=== PATIENT | female | born 1960 | race African-American/Black ===

== ENCOUNTER → 2016-09-07 | Outpatient (CLI) | payer OTHER ==
[2016-03-02 15:14] VITALS: BP 115/62; PULSE 59
[~2016-09-07] MED LIST: FMR25 PO; SENN-61 PO; [UNRECOGNIZED DRUG - REMARK]
[2016-09-07 15:09] VITALS: BP 112/69; PULSE 70; TEMP 36.8; O2SAT 97
--- NOTE | 2016-09-07 16:14 | Radiation Oncology Follow-Up ---
Radiation Oncology Follow-Up Date of Visit Sep 07, 2016. 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 Yessica Chris is a 56-year-old -[place] female who self detected a right breast mass in the upper outer quadrant in May of 2015. She has a significant family history of breast cancer. The patient's mother from breast cancer at age 55. A paternal aunt is a survivor of breast cancer and the patient's sister was diagnosed with stage IV breast cancer with brain metastasis. The patient's previous mammogram from 12/21/2012 was unremarkable. On 06/10/2015 patient underwent a repeat bilateral digital diagnostic mammogram with CAD and targeted right ultrasound. Clinically a 3 cm mass was noted in the upper-outer quadrant of the right breast. A new irregular 3.2 x 2.3 cm dense mass was noted in the right upper outer posterior breast with associated architectural distortion. This was suspicious for malignancy. Real- time high-resolution sonographic evaluation of the right upper quadrant and right axilla were performed. At the 10 o'clock position of the right breast, 4 cm from the nipple an irregular and spiculated hypoechoic solid vascular mass was noted measuring 2.9 x 1.5 x 1.7 cm. 2 lymph nodes were identified in the right axilla. The first measured 1.5 cm in length and has a 2.4 mm cortex. The second measured 2.2 cm in length and has a mildly thickened cortex measuring up to 4.1 mm. This lymph node was indeterminate further evaluation and tissue sampling recommended. This was given a BI-RADS Category 5, highly suggestive of malignancy with biopsy recommended. On 06/17/2015 the patient underwent multiple ultrasound-guided biopsies of the right breast and axilla. The tissue taken from the palpable mass of the right breast at the 10 o'clock position under ultrasound guidance revealed an infiltrative carcinoma Miguel grade 2 moderately differentiated. A biopsy of a right axillary lymph node showed changes consistent with interfollicular hyperplasia but no tumor seen. This breast lesion was estrogen receptor positive (100%, strong). Progesterone receptors were negative (0% staining). HER-2/jackson was equivocal (2+). HER-2/jackson status was assessed by FISH analysis and was negative. Case: [id number]. Patient was seen by Dr. Alexandro Parker for surgical evaluation. His examination confirmed a 3 cm firm mass in the upper outer right breast. No palpable axillary adenopathy was appreciated. He discussed surgical treatment options with the patient. He felt that she was a good candidate for breast conserving therapy. He ordered BRCA testing which was performed and was negative. On 07/03/2015 patient underwent a right partial mastectomy and sentinel lymph node biopsy. A right axillary sentinel lymph node #1 revealed metastatic adenocarcinoma identified within 1 of 2 lymph nodes, routine stain and cytokeratin positive). The carcinoma measured up to 0.4 cm in greatest dimension with no extranodal extension identified. The right breast partial mastectomy specimen confirmed infiltrating ductal carcinoma measuring 3.0 x 3.0 x 2.0 cm. This was a histologic [place] grade 2 of 3. Ductal carcinoma in situ was present, solid and cribriform with focal non-comedo necrosis and nuclear grade 2 of 3. No extensive intraductal component was identified. The margins were uninvolved by invasive carcinoma and by DCIS. Invasive carcinoma extended to within 0.2 cm of the deep margin, 0.6 cm from the superior margin and 0.8 cm from the inferior margin. DCIS extended to within less than 0.1 cm of the superior margin. Final AJCC staging is pT2 pN1a(sn), ER positive, IA negative, HER-2/jackson negative. A: [id number]. Patient was seen by Dr. Alexandro Caro for evaluation of systemic therapy. He recommended combined chemotherapy consisting of 4 cycles of Taxotere and Cytoxan followed by 5 years of hormonal therapy. He recommended subsequent radiation to the right breast and chest wall and axillary nodes. We were asked to see the patient in referral for discussion of this treatment option. She completed her systemic chemotherapy. She returned to our office to undergo radiation therapy. She was treated from 01/18/2016 to 01/29/2016. She received 6280 cGy. Interim History She's been doing well over the past 6 months. She has occasional tight feeling in the upper outer portion of the breast and towards the axilla. She has noted no masses or tenderness. She's had no swelling of her arm. She is up-to-date on mammography. She is on Femara and denies side effects. She was uncertain as to the date of her next mammogram. Allergies Coded Allergies: Alcohol (Verified Allergy, Severe, HIVES, DIFFICULTY BREATHING, 11/26/15) Docetaxel (Verified Allergy, Severe, HIVES, DIFFICULTY BREATHING, 11/26/15) Ethanol (Verified Allergy, Severe, HIVES, DIFFICULTY BREATHING, 11/26/15) Sorbitan (Verified Allergy, Severe, HIVES, DIFFICULTY BREATHING, 11/26/15) Metoclopramide (Verified Allergy, Unknown, 10/07/15) Sulfa Drugs (Verified Allergy, Unknown, 10/07/15) Sulfamethoxazole (Verified Allergy, Unknown, 10/07/15) Tomato (Verified Allergy, Unknown, ITCHY, 10/07/15) Trimethoprim (Verified Allergy, Unknown, 10/07/15) Home Medications Scheduled Letrozole (Femara), 1 TAB PO DAILY Senna (Senokot), 1 TAB PO DAILY Review of Systems Gastrointestinal: Symptoms: WNL GI Comments: Constipation - Senna daily Oral: Symptoms: No Problems Respiratory: Symptoms: WNL Urinary: Symptoms: WNL Comments: urine started to get dark since starting cancer pill Skin: Symptoms: No Problems Breast: Right Upper Arm Measurement: 27.5 Right Mid Arm Measurement: 23.0 Right Wrist Measurement: 15.5 Left Upper Arm Measurement: 29.5 Left Mid Arm Measurement: 22.9 Left Wrist Measurement: 15.4 Arm Dominence: Right Physical Exam Vital Signs Date Time Temp Pulse Resp B/P Pulse Ox O2 Delivery O2 Flow Rate FiO2 09/07/16 15:09 36.8 70 16 112/69 97 Pain: Patient Pain Scale: 0 - 10 Initial Pain Intensity: 0.0 Fatigue: None General Appearance: no apparent distress Eyes: normal inspection, EOMI ENT: normal ENT inspection, hearing grossly normal Neck: no adenopathy, thyroid normal Respiratory/Chest: lungs clear, no respiratory distress, no accessory muscle use Breast: Breast examination reveals well-healed healed incisions of the right breast. There are no masses or tenderness no axillary adenopathy. There is mild hyperpigmentation. There are no skin retractions or nipple changes. Using the [place] score cosmesis she has a good outcome. The left breast showed no masses or tenderness and no axillary adenopathy. Cardiovascular: regular rate, rhythm, no gallop, no murmur Extremities: no pedal edema Neurologic/Psychiatric: no motor/sensory deficits, alert, normal mood/affect Skin: warm/dry Lymphatic: no adenopathy Additional Studies BILATERAL DIGITAL DIAGNOSTIC MAMMOGRAM 3D/2D: 04/12/2016 CLINICAL HISTORY: 55-year-old female with a personal history of right breast cancer status post lumpectomy and radiation. Family history of breast cancer = sister. Comparison is made to exams dated: 06/17/2015 ultrasound biopsy, 06/17/2015 mammogram, 06/10/2015 mammogram, and 06/10/2015 ultrasound - [facility]. FINDINGS: Bilateral CC and MLO 2-D digital and tomosynthesis images, spot magnification right CC and ML views were obtained. The tissue of both breasts is heterogeneously dense, which may obscure small masses. Current study was also evaluated with the use of computer aided detection (CAD). Linear scar markers overlie the right upper outer quadrant and axilla, from previous lumpectomy and lymph node sampling. There is expected architectural distortion and associated surgical clips at the lumpectomy bed. Also mild diffuse right breast skin thickening and trabecular edema, likely related to recent treatment. No new suspicious mass, architectural distortion or cluster of microcalcifications is seen bilaterally. IMPRESSION: ACR-BI-RADS CATEGORY 3: PROBABLY BENIGN Expected post-therapeutic changes in the right breast, without definite mammographic evidence of malignancy bilaterally. Would recommend follow-up of the left breast in one year and follow-up of the right breast in 6 months to ensure stability 12 to 18 months status post treatment. These results and recommendations were discussed with the patient at the time of the exam. Approximately 10% of breast cancers are not detected with mammography. A negative mammographic report should not delay biopsy if a clinically suggestive mass is present. Mer Perez M.D. ay/:04/12/2016 09:25:57 [employer] Consultant: Betty Posada, [facility] letter sent: Follow Up Recommended 3 BI-RADS Code: ACR-BI-RADS Category 3: Probably Benign Dictated by: Mer Perez MD Signed by: Mer Perez MD Assessment & Plan Plan: Her schedule was reviewed and she had been scheduled for a recheck right breast mammogram in September. The date and time were given. We discussed light massage to the upper outer portion of the breast and axilla. She also continue doing range of motion stretching exercises. She continues on the Femara. Continue regular follow-up with Dr. Parker and her primary care physician. Continue follow-up with Dr. Caro. We asked her to return to our office in 1 year. She may call if she has any questions or concerns in the interim. Total Time In Follow-Up I spent 20 minutes speaking to the patient and performing examination. I sent 15 minutes reviewing information in completing this note. Copy To Alexandro Parker M.D.; Vicki Ley M.D.; Alexandro Caro M.D.
== END | disposition home or self-care (01) ==
LOC: C.ONC 14:46
PROVIDERS: ATTEND Radiology Radiation Oncology
DX: Z08 Encounter for follow-up examination after completed treatment for malignant neoplasm (principal); Z92.3 Personal history of irradiation; Z85.3 Personal history of malignant neoplasm of breast

== ENCOUNTER → 2016-10-12 | Outpatient (CLI) | payer OTHER ==
[~2016-10-12] MED LIST changes: -[UNRECOGNIZED DRUG - REMARK]
--- NOTE | 2016-10-12 12:32 | MAMMOGRAPHY REPORT ---
UNILATERAL RIGHT DIGITAL DIAGNOSTIC MAMMOGRAM TOMOSYNTHESIS WITH CAD: 10/12/2016 CLINICAL HISTORY: 56-year-old woman with a personal history of right breast cancer status post treat ment presents for follow-up in the right breast. TECHNIQUE: Right breast CC and MLO 2-D digital anterolisthesis images, spot magnification right CC a nd ML views were obtained. Current study was also evaluated with a Computer Aided Detection (CAD) sy stem. COMPARISON: Comparison is made to exams dated: 04/12/2016 mammogram, 06/10/2015 mammogram, 5 ultrasound, and 12/21/2012 mammogram - [facility]. BREAST COMPOSITION: The tissue of the right breast is heterogeneously dense, which may obscure smal l masses. FINDINGS: There is expected architectural distortion with associative surgical clips in the upper o uter posterior right breast, at the site of prior lumpectomy. The remainder of the parenchymal edson taran is similar to prior exams, without evidence of a suspicious mass, architectural distortion or cl uster of suspicious microcalcifications. IMPRESSION: ACR-BI-RADS CATEGORY 3: PROBABLY BENIGN Stable mammographic appearance of the right breast status post treatment, without mammographic evide nce of malignancy. The patient is due for bilateral mammography in 6 months. These results and rec ommendations were discussed with the patient at the time of the exam. She tentatively scheduled a f ollow-up appointment prior to leaving the department. Approximately 10% of breast cancers are not detected with mammography. A negative mammographic repor t should not delay biopsy if a clinically suggestive mass is present. Mer Perez M.D. ay/:10/12/2016 08:27:[address] Manager: Maggi CUMMINGS(R)(M), [facility] letter sent: Personal History 3 BI-RADS Code: ACR-BI-RADS Category 3: Probably Benign
== END | disposition home or self-care (01) ==
LOC: C.MAMM 07:59
PROVIDERS: ATTEND Surgery
DX: Z08 Encounter for follow-up examination after completed treatment for malignant neoplasm (principal); Z85.3 Personal history of malignant neoplasm of breast

== ENCOUNTER → 2017-01-18 | Outpatient (CLI) | payer OTHER ==
[2017-01-18 17:36] LABS: URINE APPEARANCE CLEAR (CLEAR); URINE BILIRUBIN NEG (NEG); URINE COLOR YELLOW; URINE NITRITE NEG (NEG); URINE SPECIFIC GRAVITY 1.011 (1.000-1.030); UROBILINOGEN NEG (NEG)
[2017-01-18 17:41] LABS: MANUAL MICROSCOPIC REQUIRED? NO; REVIEW REQ? NO
== END | disposition home or self-care (01) ==
LOC: C.LAB1850 16:49
PROVIDERS: ATTEND Obstetrics & Gynecology
DX: R39.9 Unspecified symptoms and signs involving the genitourinary system (principal)

== ENCOUNTER → 2017-04-12 | Outpatient (CLI) | payer OTHER | END | disposition home or self-care (01) | LOC: C.PAPS 09:34 | PROVIDERS: ATTEND Obstetrics & Gynecology | DX: Z01.419 Encounter for gynecological examination (general) (routine) without abnormal findings (principal) ==

== ENCOUNTER → 2017-04-12 | Outpatient (CLI) | payer OTHER ==
[2017-04-12 19:41] LABS: URINE APPEARANCE CLEAR (CLEAR); URINE BILIRUBIN NEG (NEG); URINE COLOR YELLOW; URINE NITRITE NEG (NEG); URINE PH 5.5 (4.5-7.5); URINE SPECIFIC GRAVITY 1.014 (1.000-1.030); UROBILINOGEN NEG (NEG); ZZUR CULT IF INDIC CLEAN CATCH NO
[2017-04-12 19:43] LABS: MANUAL MICROSCOPIC REQUIRED? NO; REVIEW REQ? YES
[2017-04-12 20:00] LABS: URINE EPITHELIAL CELL AUTO 0-5 /lpf (0-5)
== END | disposition home or self-care (01) ==
LOC: C.LABSPEC 17:38
PROVIDERS: ATTEND Obstetrics & Gynecology
DX: Z01.419 Encounter for gynecological examination (general) (routine) without abnormal findings (principal)

== ENCOUNTER → 2017-04-14 | Outpatient (CLI) | payer OTHER ==
--- NOTE | 2017-04-14 12:44 | MAMMOGRAPHY REPORT ---
BILATERAL DIGITAL DIAGNOSTIC MAMMOGRAM TOMOSYNTHESIS WITH CAD AND TARGETED RIGHT ULTRASOUND: 7 CLINICAL HISTORY: History of right breast cancer status post lumpectomy and radiation therapy. The p atient reports no current complaints. TECHNIQUE: Breast tomosynthesis in addition to standard 2D mammography was performed. Current study was also evaluated with a Computer Aided Detection (CAD) system. Bilateral CC and MLO 2-D and tomosy nthesis images and spot magnification right cc and ML views were obtained. COMPARISON: Comparison is made to exams dated: 04/12/2016 mammogram, 06/17/2015 ultrasound biopsy, mammogram, 06/10/2015 mammogram, 06/10/2015 ultrasound, and 12/21/2012 mammogram - [facility]. BREAST COMPOSITION: The tissue of both breasts is heterogeneously dense, which may obscure small mas ses. FINDINGS: There are stable post surgical changes in the right upper outer quadrant posteriorly from prior lumpectomy, including stable density, architectural distortion, and surgical clips at the lumpe ctomy bed. Linear scar markers denote scars on the right upper outer breast and right axillary regio n. Spot magnification views of the lumpectomy bed demonstrate no suspicious masses or clusters of mi crocalcifications. Mild diffuse right breast skin thickening is decreased, and is likely related to prior radiation therapy. There is a nodular 12 mm asymmetry seen within the right superior breast on the MLO tomosynthesis images only, which likely represents normal fibroglandular tissue although ult rasound was performed for further evaluation. The remainder of both breasts are stable compared to p rior exams, without suspicious masses, calcifications, or areas of architectural distortion noted. A few scattered bilateral benign-appearing calcifications are again noted. Targeted ultrasound was performed of the right slightly superior breast in the region of the mammogra phic asymmetry, which shows no suspicious masses or other suspicious sonographic abnormalities. Expe cted postsurgical changes are noted at the surgical bed in the right upper outer quadrant at approxim ately 10:00. IMPRESSION: ACR BI-RADS CATEGORY 2: BENIGN, TARGETED ULTRASOUND ACR BI-RADS CATEGORY 2: BENIGN Stable post treatment changes in the right breast, without mammographic evidence of malignancy in eit her breast. There is no mammographic or targeted sonographic evidence of malignancy. A 1 year screen ing mammogram is recommended. The patient has been verbally notified of the results. Approximately 10% of breast cancers are not detected with mammography. A negative mammographic report should not delay biopsy if a clinically suggestive mass is present. Keke Rojas M.D. ah/:04/14/2017 08:31:31 [employer] Operator: Mary QUINONES)(Millie), [facility] letter sent: Normal 1/2 BI-RADS Code: ACR BI-RADS Category 2: Benign Ultrasound BI-RADS: ACR BI-RADS Category 2: Benign
== END | disposition home or self-care (01) ==
LOC: C.MAMM 07:51
PROVIDERS: ATTEND Surgery
DX: C50.911 Malignant neoplasm of unspecified site of right female breast (principal)

== ENCOUNTER → 2017-09-12 | Outpatient (CLI) | payer OTHER ==
[2017-09-12 14:43] VITALS: BP 114/76; PULSE 79; TEMP 36.6; O2SAT 96
--- NOTE | 2017-09-12 16:25 | Radiation Oncology Follow-Up ---
Radiation Oncology Follow-Up Date of Visit Sep 12, 2017. Reason For Visit Annual follow-up Radiation Completion Date 02/08/16 Diagnosis (1) Carcinoma of upper-outer quadrant of right female breast Status: Resolved Onset Date: 06/17/2015 Histology Subtype: Ductal Stage: ll (B) Permanent Comment: Soft detected right breast mass Status post biopsy 06/17/2015 Status post lumpectomy and sentinel lymph node biopsy 07/03/2015 Infiltrating ductal carcinoma Estrogen receptor positive, progesterone receptor negative, HER-2/jackson negative Stage pT2 pN1a(sn) M0 Stage IIB BRCA1 and BRCA2 testing negative Taxotere and Cytoxan for 4 cycles Status post completion of radiation therapy 01/29/2016 received 6280 cGy Last Edited By: Stacy Bruno on Feb 08, 2016 14:19 History of Present Illness Ms. Serena Pino is a 56-year-old -[place] female who self detected a right breast mass in the upper outer quadrant in May of 2015. She has a significant family history of breast cancer. The patient's mother from breast cancer at age 55. A paternal aunt is a survivor of breast cancer and the patient's sister was diagnosed with stage IV breast cancer with brain metastasis. The patient's previous mammogram from 12/21/2012 was unremarkable. On 06/10/2015 patient underwent a repeat bilateral digital diagnostic mammogram with CAD and targeted right ultrasound. Clinically a 3 cm mass was noted in the upper-outer quadrant of the right breast. A new irregular 3.2 x 2.3 cm dense mass was noted in the right upper outer posterior breast with associated architectural distortion. This was suspicious for malignancy. Real- time high-resolution sonographic evaluation of the right upper quadrant and right axilla were performed. At the 10 o'clock position of the right breast, 4 cm from the nipple an irregular and spiculated hypoechoic solid vascular mass was noted measuring 2.9 x 1.5 x 1.7 cm. 2 lymph nodes were identified in the right axilla. The first measured 1.5 cm in length and has a 2.4 mm cortex. The second measured 2.2 cm in length and has a mildly thickened cortex measuring up to 4.1 mm. This lymph node was indeterminate further evaluation and tissue sampling recommended. This was given a BI-RADS Category 5, highly suggestive of malignancy with biopsy recommended. On 06/17/2015 the patient underwent multiple ultrasound-guided biopsies of the right breast and axilla. The tissue taken from the palpable mass of the right breast at the 10 o'clock position under ultrasound guidance revealed an infiltrative carcinoma [place] grade 2 moderately differentiated. A biopsy of a right axillary lymph node showed changes consistent with interfollicular hyperplasia but no tumor seen. This breast lesion was estrogen receptor positive (100%, strong). Progesterone receptors were negative (0% staining). HER-2/jackson was equivocal (2+). HER-2/jackson status was assessed by FISH analysis and was negative. Case: [id number]. Patient was seen by Dr. Alexandro Parker for surgical evaluation. His examination confirmed a 3 cm firm mass in the upper outer right breast. No palpable axillary adenopathy was appreciated. He discussed surgical treatment options with the patient. He felt that she was a good candidate for breast conserving therapy. He ordered BRCA testing which was performed and was negative. On 07/03/2015 patient underwent a right partial mastectomy and sentinel lymph node biopsy. A right axillary sentinel lymph node #1 revealed metastatic adenocarcinoma identified within 1 of 2 lymph nodes, routine stain and cytokeratin positive). The carcinoma measured up to 0.4 cm in greatest dimension with no extranodal extension identified. The right breast partial mastectomy specimen confirmed infiltrating ductal carcinoma measuring 3.0 x 3.0 x 2.0 cm. This was a histologic Miguel grade 2 of 3. Ductal carcinoma in situ was present, solid and cribriform with focal non-comedo necrosis and nuclear grade 2 of 3. No extensive intraductal component was identified. The margins were uninvolved by invasive carcinoma and by DCIS. Invasive carcinoma extended to within 0.2 cm of the deep margin, 0.6 cm from the superior margin and 0.8 cm from the inferior margin. DCIS extended to within less than 0.1 cm of the superior margin. Final AJCC staging is pT2 pN1a(sn), ER positive, [place] negative, HER-2/jackson negative. A: [id number]. Patient was seen by Dr. Alexandro Caro for evaluation of systemic therapy. He recommended combined chemotherapy consisting of 4 cycles of Taxotere and Cytoxan followed by 5 years of hormonal therapy. He recommended subsequent radiation to the right breast and chest wall and axillary nodes. We were asked to see the patient in referral for discussion of this treatment option. She completed her systemic chemotherapy. She returned to our office to undergo radiation therapy. She was treated from 01/18/2016 to 01/29/2016. She received 6280 cGy. Interim History She has been doing well over the past year. She denies any changes to her breast. She has noted no masses or tenderness no change of the axilla. She has had no swelling of her arm. She is up-to-date on mammography. She is on Femara and denies side effects. She has a complaint of itching of her ear canals. She denied any allergy symptoms such as itching of the eyes and sneezing. No problems with nasal drainage. Allergies Coded Allergies: Alcohol (Verified Allergy, Severe, HIVES, DIFFICULTY BREATHING, 11/26/15) Docetaxel (Verified Allergy, Severe, HIVES, DIFFICULTY BREATHING, 11/26/15) Ethanol (Verified Allergy, Severe, HIVES, DIFFICULTY BREATHING, 11/26/15) Sorbitan (Verified Allergy, Severe, HIVES, DIFFICULTY BREATHING, 11/26/15) Metoclopramide (Verified Allergy, Unknown, 10/07/15) Sulfa Drugs (Verified Allergy, Unknown, 10/07/15) Sulfamethoxazole (Verified Allergy, Unknown, 10/07/15) Tomato (Verified Allergy, Unknown, ITCHY, 10/07/15) Trimethoprim (Verified Allergy, Unknown, 10/07/15) Home Medications Scheduled Letrozole (Femara), 1 TAB PO DAILY Review of Systems Gastrointestinal: Symptoms: WNL GI Comments: Constipated at times - managed with prunes Oral: Symptoms: No Problems Respiratory: Symptoms: WNL Urinary: Symptoms: WNL Skin: Symptoms: No Problems Breast: Right Upper Arm Measurement: 28.0 Right Mid Arm Measurement: 21.7 Right Wrist Measurement: 15.3 Left Upper Arm Measurement: 30.0 Left Mid Arm Measurement: 22.7 Left Wrist Measurement: 15.2 Arm Dominence: Right Physical Exam Vital Signs Date Time Temp Pulse Resp B/P (MAP) Pulse Ox O2 Delivery O2 Flow Rate FiO2 09/12/17 14:43 36.6 79 16 114/76 96 Fatigue: None General Appearance: no apparent distress Eyes: normal inspection, EOMI ENT: normal ENT inspection, hearing grossly normal, TMs normal (There is small amount of dried cerumen.) Neck: no adenopathy, thyroid normal Respiratory/Chest: lungs clear, no respiratory distress, no accessory muscle use Breast: Breast examination reveals well-healed incisions of the right breast. There are no masses or tenderness and no axillary adenopathy. She has no skin retractions or nipple changes. Using the [place] cosmesis she has an excellent outcome. The left breast showed no masses or tenderness and no axillary adenopathy. Cardiovascular: regular rate, rhythm, no gallop, no murmur Extremities: no pedal edema Neurologic/Psychiatric: no motor/sensory deficits, alert, normal mood/affect Skin: warm/dry Pain Management Patient Reports Pain: No Initial Pain Intensity: 0.0 Pain Management Plan She denies pain therefore requires no pain management. Laboratory Laboratory Results: not applicable Pathology Pathology Results: not applicable Imaging Imaging Studies: were reviewed, and pertinent findings noted below Imaging Comments Patient: SERENA PINO [facility] Rec: [id number] Address1: [address] [place] [address] Address2: [facility] ID: [id number] Date: 1960 Sex: F Ref Phy: Alexandro Parker M.D. Att Phy: Alexandro Parker M.D. Mely Phy: No Doctor, Assigned Inter Phy: Keke Rojas MD [facility]: [place] [address] SC: [id number] Report #: [id number] Note Teller: ALISON Diagnosis: 6 MO F/U BILATERAL Service Date: 04/14/17 MNE: [id number] Ordering Dr: Alexandro Parker M.D. CC: Alexandro Parker M.D. CONF: DICTATED BY: Keke Rojas MD MAMMOGRAPHY REPORT BILATERAL DIGITAL DIAGNOSTIC MAMMOGRAM TOMOSYNTHESIS WITH CAD AND TARGETED RIGHT ULTRASOUND: 04/14/2017 CLINICAL HISTORY: History of right breast cancer status post lumpectomy and radiation therapy. The patient reports no current complaints. TECHNIQUE: Breast tomosynthesis in addition to standard 2D mammography was performed. Current study was also evaluated with a Computer Aided Detection (CAD ) system. Bilateral CC and MLO 2-D and tomosynthesis images and spot magnification right cc and ML views were obtained. COMPARISON: Comparison is made to exams dated: 04/12/2016 mammogram, 06/17/2015 ultrasound biopsy, 06/17/2015 mammogram, 06/10/2015 mammogram, 06/10/2015 ultrasound, and 12/21/2012 mammogram - [facility]. BREAST COMPOSITION: The tissue of both breasts is heterogeneously dense, which may obscure small masses. FINDINGS: There are stable post surgical changes in the right upper outer quadrant posteriorly from prior lumpectomy, including stable density, architectural distortion, and surgical clips at the lumpectomy bed. Linear scar markers denote scars on the right upper outer breast and right axillary region. Spot magnification views of the lumpectomy bed demonstrate no suspicious masses or clusters of microcalcifications. Mild diffuse right breast skin thickening is decreased, and is likely related to prior radiation therapy. There is a nodular 12 mm asymmetry seen within the right superior breast on the MLO tomosynthesis images only, which likely represents normal fibroglandular tissue although ultrasound was performed for further evaluation. The remainder of both breasts are stable compared to prior exams, without suspicious masses, calcifications, or areas of architectural distortion noted. A few scattered bilateral benign-appearing calcifications are again noted. Targeted ultrasound was performed of the right slightly superior breast in the region of the mammographic asymmetry, which shows no suspicious masses or other suspicious sonographic abnormalities. Expected postsurgical changes are noted at the surgical bed in the right upper outer quadrant at approximately 10:00. IMPRESSION: ACR BI-RADS CATEGORY 2: BENIGN, TARGETED ULTRASOUND ACR BI-RADS CATEGORY 2: BENIGN Stable post treatment changes in the right breast, without mammographic evidence of malignancy in either breast. There is no mammographic or targeted sonographic evidence of malignancy. A 1 year screening mammogram is recommended. The patient has been verbally notified of the results. Approximately 10% of breast cancers are not detected with mammography. A negative mammographic report should not delay biopsy if a clinically suggestive mass is present. Keke Rojas M.D. ah/:04/14/2017 08:31:31 Ad Copy Writer: Mary QUINONES)(Millie), [facility] letter sent: Normal 1/2 BI-RADS Code: ACR BI-RADS Category 2: Benign Ultrasound BI-RADS: ACR BI-RADS Category 2: Benign Dictated by: Keke Rojas MD Signed by: Keke Rojas MD Assessment & Plan Plan: I reviewed with her that there was a small amount of dried wax in the ears. This may be causing some of the itching. She will continue regular follow-up with medical oncology and her primary care physician. She had been a patient of Dr. Caro and is going to be seen by Dr. Lowery. She also had previously followed with Dr. Parker. She has not decided if she is going to continue follow-up with his new partner. We discussed that she should have breast examinations twice a year. She will follow with medical oncology and return to our office in 1 year. She continues on the Femara. Total Time In Follow-Up I spent 20 minutes speaking to the patient and performing examination. I spent 15 minutes reviewing information and completing this note. Copy To Roberto Carlos Lowery MD; Mc Pappas M.D.(OLGA) Problem Qualifiers (1) Carcinoma of upper-outer quadrant of right female breast: Estrogen receptor status: positive Qualified Codes: C50.411 - Malignant neoplasm of upper-outer quadrant of right female breast; Z17.0 - Estrogen receptor positive status [ER+]
== END | disposition home or self-care (01) ==
LOC: C.ONC 14:35
PROVIDERS: ATTEND Physician Assistant Medical
DX: Z08 Encounter for follow-up examination after completed treatment for malignant neoplasm (principal); Z92.3 Personal history of irradiation; Z85.3 Personal history of malignant neoplasm of breast

== ENCOUNTER 2021-02-09 02:56 | Inpatient (IN) ==
[2021-02-09] MEDS ORDERED: HYDROmorphone INJ 1 MG/ML SYRINGE IV STA ×3 (03:24→06:33)
[2021-02-09] MEDS ORDERED: SODIUM CHLORIDE 0.9% 1000ML 1,000 ML IV ONE (03:24)
--- NOTE | 2021-02-09 03:29 | Emergency Department Note ---
Impression & Plan Lumbar disc herniation, Acute left-sided low back pain with left-sided sciatica ED Provider Note Name: SERENA PINO Age: 60 Sex: F Arrives Via: Walk-In Informant: Patient ED Provider: Saul Hobbs MD Chief Complaint: Left leg pain Impression: As Above Medical Decision Makin yr old pleasant female with history of breast cancer and GERD arrives with 1 month worsening low back pain radiating down left leg. Already with extensive work up including CT a/p and US left leg along with treatments of steroids and pain medications. She arrives with worsening pain and unable to tolerate at home. Pulses intact and movement good with normal strength. No loss bowel bladder nor weakness though she notes paresthesias entire left leg. Given history and findings felt MRI indicated. Pain controlled with Dilaudid though requiring multiple doses. MRI with left lateral recess/foramen occlusion L4-5 due to disc extrusion. No neuro deficits other than pain and paresthesias fortunately though clearly severe pain from this. Discussed with Spine who will evaluate in hospital and hospitalist with bring in. Prior Medical Record and Triage/Nursing Notes reviewed by Me Additional history obtained from chart Differentials:Musculoskeletal, disc herniation, fracture, metastatic disease, cord compression, discitis, sciatica, cauda equina, infection, aortic disease, renal colic, gastrointestinal, as well as other pathologies. Vital Signs: reviewed and remarkable for no significant abnormalities Interventions: saline lock, dilaudid 1mg IV x 3, Decadron 10mg IV Labs:Reviewed and remarkable for no significant abnormalities Imaging:[facility] Radiologist interpretation reviewed by me: "MRI L SPINE : Near-total occluded left lateral recess and foramen at L4-5, probably secondary to disc extrusion. No central spinal stenosis or other disc extrusion. Moderate to severe motion artifact limits evaluation. Radiologist: Deedee Bernal M.D." Consults:Dr Pulido Ortho-Spine: Keep NPO and will evaluate in hospital Dr Crispin NICHOLSON Hospitalist will evaluate for hospitalization Plan: Disposition:Hospitalization. Condition: Good History of Present Illness:60 yr old female arrives for evaluation of left leg pain. Patient with 1 month of left leg pain. Initially left lower back, gradually progressing to radiation down entire left leg. No falls, trauma, injury. Notes that low back is actually feeling OK now, but that from left hip to toes is severe pain. No fevers, swelling, nausea, vomiting, loss bowel/bladder, weakness, syncope, rashes, calf swelling/pain, nor other symptoms. Previous work up includes CT lumbar, CT abdo/pelv, US doppler left leg. Lumbar spine known moderate canal stenosis from CT. No previous back issues. Advil taken without relief. Previously on Prednisone and Medrol dosepak. Walking makes worse, rest and laying on right side makes better. ROS: See above HPI for pertinent positives & negatives. A total of 10 systems reviewed and were otherwise negative. Past Medical History:Breast Cancer, GERD Past Surgical History:Breast resection, Tonsillectomy Family History:None Social History:Works with packaging boxes Home Medications:Letrozole, Vit D3, Calcium Allergies:See Below Vitals:Blood Pressure: 144/78, Pulse 65, RR 18, T 36.2C, O2 99% on RA Physical Exam: GENERAL: Patient is very uncomfortable appearing and in moderate distress. EYES: No scleral icterus, unremarkable pupils. ENT: Mucous membranes moist, no nasal congestion. NECK: No masses appreciated, nomeningismus, trachea is midline. RESPIRATORY: No dyspnea. Clear to auscultation and equal bilaterally. No wheeze, no rhonchi. CARDIOVASCULAR: Regular rate and rhythm.No murmurs, rubs, gallops appreciated. GASTROINTESTINAL: Abdomen soft, non-tender, no peritonitis.Bowel sounds positive.No masses appreciated. BACK: No midline tenderness, no CVA tenderness EXTREMITIES: Normal motion all extremities, no cyanosis, no edema. NEUROLOGIC: Alert and oriented, no acute motor or sensory deficits, no focal weakness, cranial nerves grossly intact. SKIN: No rash, no jaundice, no diaphoresis. 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 Beliefs That Will Affect Care: None Current Living Situation: Spouse Feels Safe at Home: Yes Assistive Devices: None Allergies Allergies Allergy/AdvReac Type Severity Reaction Status Date / Time docetaxel Allergy Severe HIVES, Verified 02/09/21 07:23 DIFFICULTY BREATHING sorbitan esters Allergy Severe HIVES, Verified 02/09/21 07:23 DIFFICULTY BREATHING Sulfa (Sulfonamide Allergy Intermediate PUFFY, RASH Verified 02/09/21 07:23 Antibiotics) sulfamethoxazole Allergy Intermediate PUFFY, RASH Verified 02/09/21 07:23 tomato Allergy Intermediate ITCHY Verified 02/09/21 07:23 trimethoprim Allergy Intermediate PUFFY, RASH Verified 02/09/21 07:23 aspirin AdvReac Intermediate ITCHY, Verified 02/09/21 07:23 UPSET STOMACH-PER RECORD metoclopramide AdvReac Intermediate SLEEP Verified 02/09/21 07:23 DISTURBANCE Home Meds Home Medications Medication Instructions Recorded Confirmed calcium carbonate 500 mg calcium 500 mg PO BID tab 09/11/18 02/09/21 (1,250 mg) tablet (Calcium 500) cholecalciferol (vitamin D3) 125 5,000 unit PO QAM 03/28/19 02/09/21 mcg (5,000 unit) tablet (Vitamin D3) letrozole 2.5 mg tablet 2.5 mg PO QAM 03/28/19 02/09/21 Results & Data (ED) Vital Signs Vital Signs - 24 hr 02/09/21 02:58 02/09/21 05:45 Temperature 36.2 C L Temperature Source Temporal Artery Scan Pulse Rate 65 Pulse Rate [Left] 60 Pulse Rhythm [Left] Regular Pulse Strength [Left] Normal Respiratory Rate 18 17 Respiratory Effort / Characteristics Non-Labored Spontaneous Non-Labored Spontaneous Respiratory Depth Normal Normal Respiratory Pattern Regular Blood Pressure 144/78 H Blood Pressure [Left Arm] 119/72 Blood Pressure Mean 100 Blood Pressure Mean [Left Arm] 87 Blood Pressure Position Sitting Blood Pressure Position [Left Arm] Lying Pulse Oximetry 99 98 Oxygen Delivery Method Room Air Room Air Sepsis Recent Fever Within 48 Hours No Sepsis New/Unexplained Change in Mental Status No Sepsis Action Taken by Nursing No Action Required Laboratory Data Result diagrams: 02/09/21 03:34 02/09/21 03:34 Lab Results 02/09/21 02/09/21 Range/Units 03:34 03:34 WBC 4.10 L (4.8-10.8) K/uL RBC 5.03 (4.2-5.4) M/uL Hgb 13.7 (12.0-16.0) g/dL Hct 42.2 (37-47) % MCV 83.9 (80-100) fL MCH 27.2 (25-34) pg MCHC 32.5 (32-36) g/dL RDW Std Deviation 40.0 (36.4-46.3) fL RDW Coeff of Karl 13.2 (11.5-14.5) % Plt Count 199 (130-400) K/uL MPV 10.3 (7.4-10.4) fL Immature Gran % (Auto) 0.2 % Neut % (Auto) 61.3 % Lymph % (Auto) 22.4 % Mil[place] % (Auto) 13.2 % Eos % (Auto) 2.7 % Baso % (Auto) 0.2 % Neut # (Auto) 2.51 (1.4-6.5) K/uL Lymph # (Auto) 0.92 L (1.2-3.4) K/uL [place] # (Auto) 0.54 (0.11-0.59) K/uL Eos # (Auto) 0.11 (0-0.5) K/uL Baso # (Auto) 0.01 (0-0.2) K/uL Immature Gran # (Auto) 0.01 (0.00-0.02) K/uL Sodium 140 (136-145) mmol/L Potassium 3.8 (3.5-5.1) mmol/L Chloride 107 (98-107) mmol/L Carbon Dioxide 31 (21-32) mmol/L Anion Gap 2.0 L (3-11) BUN 7 (7-18) mg/dl Creatinine 0.66 (0.6-1.2) mg/dl Est Cr Clr Drug Dosing 77.8 ml/min Est GFR ( Amer) 112.1 ml/min Est GFR (Non-Af Amer) 96.7 ml/min BUN/Creatinine Ratio 10.5 (10-20) Glucose 90 (70-99) mg/dl Calcium 9.3 (8.5-10.1) mg/dl Total Creatine Kinase 91 (26-192) U/L C-Reactive Protein < 0.29 (0-0.29) mg/dl Administered Medications Sodium Chloride (Nss 1000ml) 1,000 mls @ 125 mls/hr IV .Q8H LASHELL Stop: 03/11/21 07:14 Last Admin: 02/09/21 07:41 Dose: 125 mls/hr Documented by: [id number] Discontinued Medications Dexamethasone Sodium Phosphate (DexamethasonePf 10 Mg/Ml Vial) 10 mg IV NOW ONE Stop: 02/09/21 06:34 Last Admin: 02/09/21 06:43 Dose: 10 mg Documented by: [id number] Hydromorphone HCl (Hydromorphone Inj 1 Mg/Ml Syringe) 1 mg IV NOW STA Stop: 02/09/21 03:25 Last Admin: 02/09/21 03:41 Dose: 1 mg Documented by: [id number] Hydromorphone HCl (Hydromorphone Inj 1 Mg/Ml Syringe) 1 mg IV NOW STA Stop: 02/09/21 05:12 Last Admin: 02/09/21 05:18 Dose: 1 mg Documented by: [id number] Hydromorphone HCl (Hydromorphone Inj 1 Mg/Ml Syringe) 1 mg IV NOW STA Stop: 02/09/21 06:34 Last Admin: 02/09/21 07:46 Dose: 1 mg Documented by: [id number] Sodium Chloride (Nss 1000ml) 1,000 mls @ 999 mls/hr IV .Q1H1M ONE Stop: 02/09/21 04:24 Last Infusion: 02/09/21 04:46 Dose: 0 mls/hr Documented by: [id number] Admin: 02/09/21 03:42 Dose: 999 mls/hr Documented by: [id number] Discharge Plan Visit Data Chief Complaint: Leg Injury/Pain Stated Complaint: SEVERE LFT LEG PAIN FROM HIP TO ANKLE ED Provider: Saul Hobbs Discharge Problem: Lumbar disc herniation, Acute left-sided low back pain with left-sided sciatica Forms Stand Alone Forms: [employer] Prescriptions Prescriptions: No Action calcium carbonate [Calcium 500] 500 mg calcium (1,250 mg) tablet 500 mg PO BID RF: 0 letrozole 2.5 mg Tablet 2.5 mg PO QAM RF: 0 cholecalciferol (vitamin D3) [Vitamin D3] 5,000 unit Tablet 5,000 unit PO QAM RF: 0 Referrals Referrals: Serena Toth CRNP [Primary Care Provider] -
[2021-02-09 03:46] LABS: Basophils # (auto) 0.01 K/uL (0-0.2); Basophils % (auto) 0.2 %; Eosinophils # (auto) 0.11 K/uL (0-0.5); Eosinophils % (auto) 2.7 %; Hematocrit (blood only) 42.2 % (37-47); Hemoglobin 13.7 g/dL (12.0-16.0); Immature Granulocytes # (auto) 0.01 K/uL (0.00-0.02); Immature Granulocytes % (auto) 0.2 %; Lymphocytes # (auto) 0.92 K/uL (1.2-3.4); Lymphocytes % (auto) 22.4 %; Mean Corpuscular Hemoglobin 27.2 pg (25-34); Mean Corpuscular Hgb Conc 32.5 g/dL (32-36); Mean Corpuscular Volume 83.9 fL (80-100); Mean Platelet Volume 10.3 fL (7.4-10.4); Monocytes # (auto) 0.54 K/uL (0.11-0.59); Monocytes % (auto) 13.2 %; Neutrophils # (auto) 2.51 K/uL (1.4-6.5); Neutrophils % (auto) 61.3 %; Platelet Count 199 K/uL (130-400); RDW Coefficient of Variation 13.2 % (11.5-14.5); Red Blood Count 5.03 M/uL (4.2-5.4)
[2021-02-09 04:04] LABS: BUN Creatinine Ratio 10.5 (10-20); Blood Urea Nitrogen 7 mg/dl (7-18); Calcium 9.3 mg/dl (8.5-10.1); Carbon Dioxide 31 mmol/L (21-32); Chloride 107 mmol/L (98-107); Creatinine Clr Calc Pharmacy 77.8 ml/min; Est GFR (African American) 112.1 ml/min; Est GFR (Non-African American) 96.7 ml/min; Glucose 90 mg/dl (70-99); Potassium 3.8 mmol/L (3.5-5.1); Sodium 140 mmol/L (136-145)
[2021-02-09 04:08] LABS: C Reactive Protein < 0.29 mg/dl (0-0.29); Creatine Kinase 91 U/L (26-192)
[2021-02-09] MEDS ORDERED: dexAMETHasone**PF** 10 MG/ML VIAL IV ONE (06:33)
[2021-02-09] MEDS ORDERED: SODIUM CHLORIDE 0.9% 1000ML 1,000 ML IV SCH ×2 (07:15→08:15)
[2021-02-09] MEDS ORDERED: HYDROmorphone INJ 0.5 MG/0.5 ML SYR IV PRN ×3 (07:33→11:02)
--- NOTE | 2021-02-09 08:00 | Medical Student H&P ---
Date of Service February 09, 2021 Assessment & Plan (1) Acute left-sided low back pain with left-sided sciatica: Plan: -pain began as back pain and now radiates down left leg -MRI findings:Near-total occluded left lateral recess and foramen at L4-5, probably secondary to disc extrusion. -Will be followed by Ortho and likely be taken to surgery today/tomorrow -Pain control with Dilaudid .5mg IV q15min PRN; will be changed to .25-.5mg IV PRN depending on pain level -NS 1000 @ 80ml/hr (2) Breast cancer: Plan: -Stage IIb in 2014 -Says she has not been seen since her surgeon and oncologist retired, but says she's doing well; no constitutional symptoms -Currently in letrozole -Need to establish follow-up as an outpatient History of Present Illness Chief Complaint: unbearable left leg pain Primary Care Provider: MAGO Diaz Yessica is a 60 y/o female presenting to the ED with unbearable left leg pain. She says she began having lower back pain about a month ago, which she thinks may have been exacerbated by an abnormal movement while mowing, which she does every weekend. Since then, the pain has progressively gotten worse and says the pain has been constant for the past couple of days. For the past month, she has been taking 2 Advil 400 mg every four hours. She cannot recall any recent events, falls, or heavy lifting that would have caused her pain to get as bad as it was when she came into the ED. Her pain is described as diffuse, sharp, shooting pain radiating down from her thigh to her left ankle. There is not a position that makes her pain better and upon arrival to the ED, rated her pain a 10/10 since she was tearful. While on the medication in the ED, she says the pain is about a 4-5/10. She does not endorse any weakness, fever, chills, weight loss, chest pain, cough, or shortness of breath. Allergies Allergy/AdvReac Type Severity Reaction Status Date / Time docetaxel Allergy Severe HIVES, Verified 02/09/21 07:23 DIFFICULTY BREATHING sorbitan esters Allergy Severe HIVES, Verified 02/09/21 07:23 DIFFICULTY BREATHING Sulfa (Sulfonamide Allergy Intermediate PUFFY, RASH Verified 02/09/21 07:23 Antibiotics) sulfamethoxazole Allergy Intermediate PUFFY, RASH Verified 02/09/21 07:23 tomato Allergy Intermediate ITCHY Verified 02/09/21 07:23 trimethoprim Allergy Intermediate PUFFY, RASH Verified 02/09/21 07:23 aspirin AdvReac Intermediate ITCHY, Verified 02/09/21 07:23 UPSET STOMACH-PER RECORD metoclopramide AdvReac Intermediate SLEEP Verified 02/09/21 07:23 DISTURBANCE Home Medications Medication Instructions Recorded Confirmed Type calcium carbonate 500 mg calcium 500 mg PO BID tab 09/11/18 02/09/21 History (1,250 mg) tablet (Calcium 500) cholecalciferol (vitamin D3) 125 5,000 unit PO QAM 03/28/19 02/09/21 History mcg (5,000 unit) tablet (Vitamin D3) letrozole 2.5 mg tablet 2.5 mg PO QAM 03/28/19 02/09/21 History Past Med/Surg History Medical History Cancer BREAST RIGHT-2015 GERD (gastroesophageal reflux disease) Surgical History History of lumpectomy of right breast History of tonsillectomy Social History Smoking Status: Never smoker Second Hand Exposure: No; Do You Dip or Chew Tobacco: No; Hx Alcohol Use: No Hx Substance Use: No Preferred Language: Setswana Communication Ability: Effective Printing Pressman Required: No Beliefs That Will Affect Care: None Current Living Situation: Spouse Other Information That Helps Us Care for You: No Feels Safe at Home: Yes Safety Concerns: Feels Safe At This Time Assistive Devices: None Review of Systems no fever and no chills no cough and no dyspnea no chest pain + back pain and + radicular pain (Down left leg) no localized weakness and no generalized weakness Physical Exam Constitutional: well developed, well nourished and + acute distress (mild - sedated from medications) Respiratory: normal respiratory effort, lungs clear to auscultation Cardiovascular: RRR, no murmur, no edema Musculoskeletal: no cyanosis or clubbing, extremities motor strength 5/5 Extremities: extremities normal to inspection; no cyanosis, no petechiae, full ROM of lower extremities and no lower leg abnormality Results & Data ([facility]) Vital Signs (Past 12 Hours) Vital Signs Temp Pulse Pulse Resp BP BP Pulse Ox 02/09/21 07:54 36.4 C L 66 17 120/74 98 02/09/21 07:00 36.4 C L 64 18 125/74 98 02/09/21 05:45 60 17 119/72 98 02/09/21 02:58 36.2 C L 65 18 144/78 H 99 Laboratory Results Laboratory Results WBC 4.10 K/uL (4.8-10.8) L 02/09/21 03:34 RBC 5.03 M/uL (4.2-5.4) 02/09/21 03:34 Hgb 13.7 g/dL (12.0-16.0) 02/09/21 03:34 Hct 42.2 % (37-47) 02/09/21 03:34 MCV 83.9 fL (80-100) 02/09/21 03:34 MCH 27.2 pg (25-34) 02/09/21 03:34 MCHC 32.5 g/dL (32-36) 02/09/21 03:34 RDW Std Deviation 40.0 fL (36.4-46.3) 02/09/21 03:34 RDW Coeff of Karl 13.2 % (11.5-14.5) 02/09/21 03:34 Plt Count 199 K/uL (130-400) 02/09/21 03:34 MPV 10.3 fL (7.4-10.4) 02/09/21 03:34 Immature Gran % (Auto) 0.2 % 02/09/21 03:34 Neut % (Auto) 61.3 % 02/09/21 03:34 Lymph % (Auto) 22.4 % 02/09/21 03:34 [place] % (Auto) 13.2 % 02/09/21 03:34 Eos % (Auto) 2.7 % 02/09/21 03:34 Baso % (Auto) 0.2 % 02/09/21 03:34 Neut # (Auto) 2.51 K/uL (1.4-6.5) 02/09/21 03:34 Lymph # (Auto) 0.92 K/uL (1.2-3.4) L 02/09/21 03:34 [place] # (Auto) 0.54 K/uL (0.11-0.59) 02/09/21 03:34 Eos # (Auto) 0.11 K/uL (0-0.5) 02/09/21 03:34 Baso # (Auto) 0.01 K/uL (0-0.2) 02/09/21 03:34 Immature Gran # (Auto) 0.01 K/uL (0.00-0.02) 02/09/21 03:34 Sodium 140 mmol/L (136-145) 02/09/21 03:34 Potassium 3.8 mmol/L (3.5-5.1) 02/09/21 03:34 Chloride 107 mmol/L (98-107) 02/09/21 03:34 Carbon Dioxide 31 mmol/L (21-32) 02/09/21 03:34 Anion Gap 2.0 (3-11) L 02/09/21 03:34 BUN 7 mg/dl (7-18) 02/09/21 03:34 Creatinine 0.66 mg/dl (0.6-1.2) 02/09/21 03:34 Est Cr Clr Drug Dosing 77.8 ml/min 02/09/21 03:34 Est GFR ( Amer) 112.1 ml/min 02/09/21 03:34 Est GFR (Non-Af Amer) 96.7 ml/min 02/09/21 03:34 BUN/Creatinine Ratio 10.5 (10-20) 02/09/21 03:34 Glucose 90 mg/dl (70-99) 02/09/21 03:34 Calcium 9.3 mg/dl (8.5-10.1) 02/09/21 03:34 Total Creatine Kinase 91 U/L (26-192) 02/09/21 03:34 C-Reactive Protein < 0.29 mg/dl (0-0.29) 02/09/21 03:34 COVID-19 Eval Order Covid19 at [facility] 02/09/21 07:59 Diagnostic Findings "MRI L SPINE : Near-total occluded left lateral recess and foramen at L4-5, probably secondary to disc extrusion. No central spinal stenosis or other disc extrusion. Moderate to severe motion artifact limits evaluation. Radiologist: Deedee Bernal M.D." Medications Administered Current Inpatient Medications Hydromorphone HCl (Hydromorphone Inj 0.5 Mg/0.5 Ml Syr) 0.5 mg IV Q15M PRN PRN Reason: Pain Stop: 02/23/21 07:32 Sodium Chloride (Nss 1000ml) 1,000 mls @ 125 mls/hr IV .Q8H LASHELL Stop: 03/11/21 07:14 Last Admin: 02/09/21 07:41 Dose: 125 mls/hr Documented by: Code Status & VTE Plan Code Status Full Supervising Attestation I personally examined the patient and verified all swanson points of history and exam, discussed case, and agree with decision making with Veronica Mathis MS4 In post-op setting she was noted to have some T-wave inversion that was seen on 12 lead EKG, placed on a tele floor and will trend the troponin.
--- NOTE | 2021-02-09 08:44 | Magnetic Resonance Report ---
MRI OF THE LUMBAR SPINE WITHOUT IV CONTRAST CLINICAL HISTORY: Low back pain. Left-sided sciatica. COMPARISON STUDY: CT of the lumbar spine dated 12/29/2020. TECHNIQUE: MRI of the lumbar spine is performed utilizing various T1 and T2-weighted sequences in the axial and sagittal planes. IV contrast was not administered for this examination. The examination is severely degraded by motion artifact. FINDINGS: Lumbar spine: Vertebral body height and alignment are maintained throughout the lumbar spine. The tra nsverse and spinous processes appear intact. There is no evidence of spondylolysis. No destructive iggy ny lesion is seen. Small anterior and lateral marginal osteophytes are seen throughout. There is marine painter lawrence degenerative endplate change at L1-L2 and L2-L3. Endplate edema is noted at T12-L1. Intervertebral discs: Degenerative disc desiccation and mild loss of height is seen throughout the carolee mbar spine. Loss of height is greatest at L2-L3. Spinal cord: The visualized spinal cord is normal in morphology and signal intensity. The conus medul eliseo terminates at the level of L1. The nerve roots of the cauda equina are normal in morphology. L1-L2: Unremarkable. L2-L3: There is broad-based posterior disc bulge eccentric to left. There is left-sided subarticular stenosis and this may abut the exiting left L2 nerve root. There is no significant acquired compromis e of the central canal. The neural foramina appear patent. L3-L4: Unremarkable. L4-L5: There is broad-based posterior disc bulge eccentric to the left with annular fissure. This imp inges on the transiting nerve roots, left greater than right. This causes moderate central canal sten osis at this level with a minimum AP diameter of 7 mm. There is left greater than right-sided subarti cular stenosis. This may impinge on the exiting left L4 nerve root. In conjunction with facet arthrop athy there is mild right and moderate left-sided neural foraminal stenosis. L5-S1: There is broad-based posterior disc bulge. No significant acquired compromise of the central c anal is identified. There is left greater than right-sided subarticular stenosis with possible imping ement on the exiting left L5 nerve root. In conjunction with facet arthropathy there is mild left-rohan ed neural foraminal stenosis. Sacrum: The visualized sacrum is normal in morphology and signal intensity. Soft tissues: The paraspinous soft tissues are normal as visualized. The retroperitoneal structures a re grossly unremarkable but incompletely assessed. IMPRESSION: 1. Significantly motion compromised examination. 2. Degenerative disc disease as above, greatest at L4-L5 where there is moderate central canal stenos is. See discussion for detailed level by level analysis. 3. Degenerative endplate edema is noted at T12-L1. 4. No destructive bony process is identified. Dictated: 02/09/2021 7:13 AM Transcribed: 02/09/2021 8:39 AM Joselyn [id number] [email or web address] Electronically signed by: Lei Lyons M.D. 02/09/2021 8:43 AM
[2021-02-09] MEDS ORDERED: ACETAMINOPHEN 325 MG TAB PO PRN (11:02)
[2021-02-09 11:34] LABS: Prothrombin Time 10.3 Seconds (9.0-12.0)
[2021-02-09] MEDS: SODIUM CHLORIDE 0.9% 1000ML 1,000 ML IV SCH (11:46)
--- NOTE | 2021-02-09 11:55 | Orthopedic Consultation ---
Date of Consultation February 09, 2021 Assessment & Plan (1) Lumbar disc herniation: Lung discussed with this patient this morning review MRI findings and clinical course. She does have evidence of a massive disc herniation L4-L5 foraminal nature completely occupying the L4-5 foramen and subsequently explaining her L4 radiculopathy. She has failed to obtain any significant relief with oral steroids notes incapacitating pain would like to pursue surgical invention. Due to the location of the disc I would have to perform a complete facetectomy at L4-5 on the left safely and adequately access the disc and decompress the root. This would create iatrogenic instability and subsequently I would want to fuse her at that time. Risk benefits pros cons and alternatives were outlined in detail. Risk include but not limited to anesthesia blindness stroke paralysis nerve damage blood loss requiring transfusion infection require operation patient with a marked improvement of radiculopathy. At this time we will target surgery arranged and performed soon as possible in light of her presentation. History of Present Illness Reason for Consultation: Back and left leg pain Attending Physician: Henri Rollins DO History of Present Illness This is a 60-year-old female has had a history of back pain for the past month that now is involving the left lower extremity. It radiates into the left buttock posterior thigh below the knee to the ankle. Right lower extremities asymptomatic. It is quite incapacitating nature. A course of Advil and oral steroids and provided no relief. She has been unable to sleep. It does affect her ability to stand and ambulate any distance. She denies any loss of bowel bladder control. She denies any specific trauma fall or event. She does describe this pain as a 1010 however with the IV Dilaudid is now tolerable 4-5 out of 10. Allergies Allergy/AdvReac Type Severity Reaction Status Date / Time docetaxel Allergy Severe HIVES, Verified 02/09/21 07:23 DIFFICULTY BREATHING sorbitan esters Allergy Severe HIVES, Verified 02/09/21 07:23 DIFFICULTY BREATHING Sulfa (Sulfonamide Allergy Intermediate PUFFY, RASH Verified 02/09/21 07:23 Antibiotics) sulfamethoxazole Allergy Intermediate PUFFY, RASH Verified 02/09/21 07:23 tomato Allergy Intermediate ITCHY Verified 02/09/21 07:23 trimethoprim Allergy Intermediate PUFFY, RASH Verified 02/09/21 07:23 aspirin AdvReac Intermediate ITCHY, Verified 02/09/21 07:23 UPSET STOMACH-PER RECORD metoclopramide AdvReac Intermediate SLEEP Verified 02/09/21 07:23 DISTURBANCE Home Medications Medication Instructions Recorded Confirmed Type calcium carbonate 500 mg calcium 500 mg PO BID tab 09/11/18 02/09/21 History (1,250 mg) tablet (Calcium 500) cholecalciferol (vitamin D3) 125 5,000 unit PO QAM 03/28/19 02/09/21 History mcg (5,000 unit) tablet (Vitamin D3) letrozole 2.5 mg tablet 2.5 mg PO QAM 03/28/19 02/09/21 History Patient History Medical History (Updated 02/09/21 @ 08:20 by Roberto Mathis) Cancer BREAST RIGHT-2015 GERD (gastroesophageal reflux disease) Surgical History History of lumpectomy of right breast History of tonsillectomy Social History Smoking Status: Never smoker Second Hand Exposure: No; Hx Alcohol Use: No Hx Substance Use: No Preferred Language: Swedish Communication Ability: Effective Manager Validation Required: No Beliefs That Will Affect Care: None Current Living Situation: Spouse Feels Safe at Home: Yes Assistive Devices: None Physical Exam Physical Exam: On exam she is in obvious distress. She has marked tension signs straight leg raising left negative on the right. Sensory appears to be symmetric and intact to light touch and cold bilateral extremities. Deep tendon right reflexes are diminished on the left. She has a plus out of 5 bilateral plantar flexion dorsiflexion extensor pollicis longus. There is some breakaway weakness to the left quadriceps compared to the right and a 4-/5. Results & Data ([facility]) Vital Signs (Past 12 Hours) Vital Signs Temp Pulse Pulse Resp BP BP Pulse Ox 02/09/21 10:58 36.8 C 62 18 134/81 96 02/09/21 10:15 36.6 C 74 16 140/81 97 02/09/21 08:43 36.5 C 66 16 114/68 97 02/09/21 07:54 36.4 C L 66 17 120/74 98 02/09/21 07:00 36.4 C L 64 18 125/74 98 02/09/21 05:45 60 17 119/72 98 02/09/21 02:58 36.2 C L 65 18 144/78 H 99
[2021-02-09] MEDS: LETROZOLE 2.5 MG TAB PO SCH (13:13)
--- NOTE | 2021-02-09 14:29 | Anesthesiology Consultation ---
Date of Service February 09, 2021 Assessment & Plan Chart Review Chart Review: Acceptable Risk for Surgery and Patient NOT seen in Pre Admission Testing ASA ASA2 Proposed Anesthesia Anesthesia Type: General Risk / Benefits Reviewed With: PT / POA / Parent / Guardian, Accepts Plan and Informed Consent Obtained History Surgery Operation Date: 02/09/21 14:25 Proposed Procedures p L4-L5 Decompression and Fusion - Ishmael Pulido, Height/Weight Height: 5 ft 1 in Weight: 62.2 kg Allergies Allergy/AdvReac Type Severity Reaction Status Date / Time docetaxel Allergy Severe HIVES, Verified 02/09/21 07:23 DIFFICULTY BREATHING sorbitan esters Allergy Severe HIVES, Verified 02/09/21 07:23 DIFFICULTY BREATHING Sulfa (Sulfonamide Allergy Intermediate PUFFY, RASH Verified 02/09/21 07:23 Antibiotics) sulfamethoxazole Allergy Intermediate PUFFY, RASH Verified 02/09/21 07:23 tomato Allergy Intermediate ITCHY Verified 02/09/21 07:23 trimethoprim Allergy Intermediate PUFFY, RASH Verified 02/09/21 07:23 aspirin AdvReac Intermediate ITCHY, Verified 02/09/21 07:23 UPSET STOMACH-PER RECORD metoclopramide AdvReac Intermediate SLEEP Verified 02/09/21 07:23 DISTURBANCE Medications Home Medications Medication Instructions Recorded Confirmed Last Taken calcium carbonate 500 mg calcium 500 mg PO BID tab 09/11/18 02/09/21 02/08/21 (1,250 mg) tablet (Calcium 500) cholecalciferol (vitamin D3) 125 5,000 unit PO QAM 03/28/19 02/09/21 02/08/21 mcg (5,000 unit) tablet (Vitamin D3) letrozole 2.5 mg tablet 2.5 mg PO QAM 03/28/19 02/09/21 02/08/21 Active Medications Generic Name Dose Route Start Last Admin Trade Name Freq PRN Reason Stop Dose Admin Hydromorphone HCl 0.5 mg 02/09/21 11:02 02/09/21 13:13 Hydromorphone Inj 0.5 Mg/0.5 Ml Syr IV 02/23/21 11:01 0.5 mg Q3H PRN Administration Pain (6,7,8,9,10) Sodium Chloride 1,000 mls @ 80 mls/hr 02/09/21 11:15 02/09/21 11:46 Nss 1000ml IV 02/10/21 12:14 80 mls/hr .[id number] LASHELL Administration Letrozole 2.5 mg 02/09/21 11:02 02/09/21 13:13 Letrozole 2.5 Mg Tab PO 03/11/21 11:01 2.5 mg QAM LASHELL Administration NPO Date Last Intake of Fluids: 02/09/21 Time Last Intake of Fluids: 13:15 Last Intake of Fluids Comment: sip with meds Date Last Intake of Solids: 02/09/21 Time Last Intake of Solids: 01:30 Past Medical History Medical History Cancer BREAST RIGHT-2015 GERD (gastroesophageal reflux disease) Exercise / Class Metabolic Activity II 4-5 Yardwork/Stairs/Walk up hill Past Surgical History Surgical History History of lumpectomy of right breast History of tonsillectomy Past Anesthesia History No Hx of Anesthesia Complications and No Family Hx of Anesthesia Complications History of PONV No Hx of PONV and No Hx of Motion Sickness Social History Smoking Status: Never smoker Do You Dip or Chew Tobacco: No Hx Alcohol Use: No Hx Substance Use: No Review of Systems denies fever/cough/ colds/ chest pain/ SOB/ JOSH denies JOSH Physical Exam Vital Signs Last Vital Signs Temp 36.8 C 02/09/21 14:22 Pulse 69 02/09/21 14:22 Resp 18 02/09/21 14:22 BP 109/94 02/09/21 14:22 Pulse Ox 99 02/09/21 14:22 ENMT Mouth: no TMJ abnormality and no dentition abnormality Thyromental Distance: > or= 3.5 Finger Breadths Mallampati Class: II Neck neck extension not limited Respiratory normal respiratory effort; no respiratory distress Auscultation: lungs clear to auscultation bilaterally Cardiovascular Rate/Rhythm: regular rate and regular rhythm Neurologic moves all extremities Psychiatric Orientation: alert and oriented x 3 Testing Laboratory Results 02/09/21 03:34 02/09/21 03:34 PT 10.3 Seconds (9.0-12.0) 02/09/21 11:12 INR 1.0 (0.9-1.1) 02/09/21 11:12 Blood Type O Positive 02/09/21 11:12 Antibody Screen NEGATIVE 02/09/21 11:12
[2021-02-09] MEDS ORDERED: HYDROmorphone INJ 2 MG/ML SYR/VIAL IV PRN (14:30)
[2021-02-09] MEDS ORDERED: ONDANSETRON INJ 2 MG/ML 2 ML VIAL IV PRN ×2 (14:30→18:26)
[2021-02-09] MEDS ORDERED: ePHEDrine sulfate 50 MG/ML AMP IV PRN (14:30)
[2021-02-09] MEDS ORDERED: fentaNYL citrate 100 MCG/2 ML VIAL IV PRN (14:30)
[2021-02-09] MEDS ORDERED: ATROPINE SULFATE 0.1 MG/ML 10ML SYR IV PRN (14:30)
[2021-02-09] MEDS ORDERED: ceFAZolin 1000MG 1,000 MG/7.5 ML SYR IV ONE (14:32)
[2021-02-09] MEDS ORDERED: BUPIVACAINE/EPINEPHRINE 0.5% MPF 1:200,000 30 ML VIAL ONE (14:49)
[2021-02-09] MEDS ORDERED: MIDAZOLAM HCL 1 MG/ML 2ML VIAL ONE (14:51)
[2021-02-09] MEDS ORDERED: fentaNYL citrate 100 MCG/2 ML VIAL ONE (14:52)
[2021-02-09] MEDS ORDERED: HYDROmorphone INJ 2 MG/ML SYR/VIAL ONE (15:38)
[2021-02-09] MEDS ORDERED: PROPOFOL IV EMULSION 10 MG/ML 20 ML VIAL IV ONE (15:41)
[2021-02-09] MEDS ORDERED: ROCURONIUM BROMIDE 10 MG/ML 5 ML VIAL IV ONE (15:41)
[2021-02-09] MEDS ORDERED: NEOSTIGMINE METHYLSULFATE 1 MG/ML 10ML VIAL ONE (15:41)
[2021-02-09] MEDS ORDERED: DEXAMETHASONE SOD INJ 4 MG/ML VIAL ONE (15:41)
[2021-02-09] MEDS ORDERED: LIDOCAINE 2% 2 ML VIAL/AMP(20MG/ML) INFIL ONE (15:41)
[2021-02-09] MEDS ORDERED: ONDANSETRON INJ 2 MG/ML 2 ML VIAL ONE (15:41)
[2021-02-09] MEDS ORDERED: GLYCOPYRROLATE 0.2 MG/ML VIAL ONE ×2 (15:41→17:17)
[2021-02-09] MEDS ORDERED: FLOSEAL HEMOSTATIC MATRIX 10ML TOP ONE (16:33)
--- NOTE | 2021-02-09 16:51 | Operative Report ---
Post Operative Report Pre & Post Diagnosis Operation Date: 02/09/21 14:25 Pre-Op Diagnosis: Far lateral disc herniation L4-L5 on the left Post-Op Diagnosis: Same I identified the patient and participated in the time-out.: Yes Procedure Operation Date: 02/09/21 14:25 Actual Procedures p L4-L5 Decompression and Fusion with Insertion of Interbody, Application of Bone Morphogenetic Protein, Spinal Cord Monitoring(Not Applicable) - Ishmael Pulido DO Surgeon Ishmael Pulido DO Hr Director Eufemia Card Estimated Blood Loss 100 Findings Consistent with Post-Op Diagnosis Specimens None Indications This is a 60-year-old female who presents with severe left leg pain. In light of her incapacitating pain we elected to undergo urgent decompression fusion. Description of Procedure Patient was met with identified informed consent obtained. Patient was then taken to the operative suite underwent ablation placed in a prone position injectable total spine frame. Over the prominences well-padded eyes inspected to ensure no external pressure placed upon. This point the lumbar spine was prepped and draped in a sterile fashion. Sharp dissection with the assistance of Bovie cartilage from down to and exposing the lamina and transverse processes of L4-L5. From caudal cephalad fashion complete laminectomy of L4 was performed occluding facetectomy of L4-L5 on the left. I was able to identify massive amounts of disc material both in the foramina axillary region of the exiting L4 nerve root as well as along the shoulder. It was completely encapsulated in the nerve. Was able to remove all these fragments. Pedicle screws then placed in L4 and L5 bilaterally with assistance of fluoroscopy and the proper sized stacy placed. By way of a transforaminal approach and left complete discectomy was performed endplates curetted to subcortical being bone and a 11 x 22 mm peek cage filled with I factor tapped in position. The rods were then locked in final position bilaterally. The transverse processes of L4 and L5 burred to subcortical bleeding bone. Infuse collagen sponge master graft and local autograft placed in the posterior gutters. 15 round ASHLEY drain inserted. Incision then closed with 1 Vicryl the fascia 2-0 Vicryl subcutaneously and 4 Monocryl for final skin closure. Steri-Strip sterile dressings placed. Patient waken taken to PACU stable condition. Please note spinal cord monitoring was utilized at the procedure no changes noted. Lastly Eufemia Phoenix was present for positioning and complex portions of the surgery. I attest to the content of the Intraoperative Record and any orders documented therein. Any exceptions are noted below.
--- NOTE | 2021-02-09 17:06 | Fluoroscopy Report ---
FL lumbar spine 2-3V CLINICAL HISTORY: L4-5 spinal decompression COMPARISON STUDY: MRI dated 02/09/2021 FLUOROSCOPY TIME: 16 seconds. NUMBER OF FLUOROSCOPIC IMAGES: 2 FINDINGS: 2 intraoperative fluoroscopic spot images are provided for interpretation. These reveal pos tsurgical changes of an L4-5 discectomy and interbody fusion with posterior pedicle screw fixation. T here is an overlying sponge. The technologist reports that the surgeon is aware of this finding. IMPRESSION: Intraoperative fluoroscopic spot images revealing postsurgical changes of discectomy and interbody fusion and posterior pedicle screw fixation at the L4-5 level. ACT 112: Negative or not required by law. Electronically signed by: Evan Henriquez M.D. 02/09/2021 5:05 PM
--- NOTE | 2021-02-09 17:58 | Anesthesiology Progress Note ---
Date of Service February 09, 2021 Anesthesia Post Procedure Vital Signs Vital Signs: Temp Pulse Pulse Pulse Resp BP BP 02/09/21 17:55 36.2 C L 61 20 132/76 02/09/21 17:45 60 18 111/65 02/09/21 17:35 55 L 14 130/71 02/09/21 17:25 59 L 15 124/78 02/09/21 17:15 65 12 112/74 02/09/21 17:06 36.1 C L 65 12 129/60 02/09/21 14:22 36.8 C 69 18 109/94 02/09/21 11:48 36.8 C 62 18 134/81 02/09/21 10:58 36.8 C 62 18 134/81 02/09/21 10:15 36.6 C 74 16 140/81 02/09/21 08:43 36.5 C 66 16 114/68 02/09/21 07:54 36.4 C L 66 17 120/74 02/09/21 07:00 36.4 C L 64 18 125/74 02/09/21 05:45 60 17 119/72 02/09/21 02:58 36.2 C L 65 18 144/78 H Pulse Ox 02/09/21 17:55 100 02/09/21 17:45 99 02/09/21 17:35 100 02/09/21 17:25 97 02/09/21 17:15 93 02/09/21 17:06 100 02/09/21 14:22 99 02/09/21 11:48 96 02/09/21 10:58 96 02/09/21 10:15 97 02/09/21 08:43 97 02/09/21 07:54 98 02/09/21 07:00 98 02/09/21 05:45 98 02/09/21 02:58 99 Pain Intensity Left Lower Leg: Pain Intensity: 2 Transfer of Care Handoff Completed per policy Notes Mental Status: alert / awake / arousable Patient Amnestic to Procedure: Yes Nausea / Vomiting: adequately controlled Pain: adequately controlled Airway Patency, RR, SpO2: stable & adequate BP & HR: stable & adequate Hydration State: stable & adequate Anesthetic Complications: no major complications apparent and Pt Satisfied with anesthetic care Notes: The patient is awake and comfortable. The PACU nurse was concerned about T wave inversions on the rhythm strip. A 12 lead EKG was done that showed sinus bradycardia, rate of 56 with nonspecific T wave abnormalities including slight T wave inversions in the anterior leads. Her previous EKG in the system is over twenty years old. Her vital signs are stable and she has no chest pain, tightness, sob, or other concerning cardiac symptoms. I spoke with Dr. Regalado who will follow her on the floor and determine whether to obtain any further cardiac workup.
[2021-02-09] MEDS ORDERED: DO NOT ADMINISTER PNEUMOCOCCAL VACCINE PRN (18:26)
[2021-02-09] MEDS ORDERED: MAGNESIUM HYDROXIDE SUSP 30 ML UDC PO PRN (18:26)
[2021-02-09] MEDS ORDERED: ACETAMINOPHEN 500 MG TAB PO PRN (18:26)
[2021-02-09] MEDS ORDERED: SOD PHOSPHATE/SOD BIPHOSPHATE ENEMA 132 ML BTL PR PRN (18:26)
[2021-02-09] MEDS ORDERED: PROMETHAZINE HCL 12.5 MG in SODIUM CHLORIDE 0.9% 50 ML IV PRN (18:26)
[2021-02-09] MEDS ORDERED: oxyCODONE HCL IR 5 MG TAB (IMMEDIATE RELEASE) PO PRN (18:26)
[2021-02-09] MEDS ORDERED: diphenhydrAMINE Capsule 25 MG CAP PO PRN (18:26)
[2021-02-09] MEDS ORDERED: LACTATED RINGER'S 1,000 ML IV SCH (18:26)
[2021-02-09] MEDS ORDERED: HYDROmorphone INJ 1 MG/ML SYRINGE IV PRN (18:26)
[2021-02-09] MEDS ORDERED: METOCLOPRAMIDE HCL INJ 5 MG/ML 2 ML VIAL IV PRN (18:26)
[2021-02-09] MEDS ORDERED: NALOXONE HCL 0.4 MG/1 ML VIAL/CARP IV PRN (18:26)
[2021-02-09] MEDS ORDERED: FAMOTIDINE 20 MG TAB PO PRN (18:26)
[2021-02-09] MEDS ORDERED: LORazepam 0.5 MG/1 ML VIAL IV PRN (18:26)
[2021-02-09] MEDS ORDERED: ALUMINUM/MAGNESIUM SUSP 30 ML UDC PO PRN (18:26)
[2021-02-09] MEDS ORDERED: traMADol HCL 50 MG TABLET PO PRN (18:26)
[2021-02-09] MEDS ORDERED: DO NOT ADMINISTER FLU VACCINE PRN (18:26)
[2021-02-09] MEDS ORDERED: ACETAMINOPHEN 1,000 MG/100 ML VIAL IV PRN (18:26)
[2021-02-09] MEDS ORDERED: LORazepam 0.5 MG TAB PO PRN (18:26)
[2021-02-09] MEDS ORDERED: ONDANSETRON 4 MG OD TAB PO PRN (18:26)
[2021-02-09] MEDS ORDERED: hydrOXYzine HCl 25 MG TAB PO PRN (18:26)
[2021-02-09] MEDS: KETOROLAC TROMETHAMINE 15 MG/ML VIAL IV SCH (19:36)
--- NOTE | 2021-02-09 20:13 | Billing Data ---
Date of Service February 09, 2021 Coding Level of Care Code 59294 Initial Inpt Care Lvl 3
[2021-02-09] MEDS: DOCUSATE SODIUM/SENNA 50/8.6MG TAB PO SCH (20:38)
[2021-02-10] MEDS: KETOROLAC TROMETHAMINE 15 MG/ML VIAL IV SCH ×3 (00:18→12:49)
[2021-02-10] MEDS: ceFAZolin 1000MG 1,000 MG/7.5 ML SYR IV SCH ×2 (00:19→06:10)
[2021-02-10 02:41] LABS: Hematocrit (blood only) 35.7 % (37-47); Hemoglobin 11.6 g/dL (12.0-16.0); Immature Granulocytes # (auto) 0.03 K/uL (0.00-0.02); Immature Granulocytes % (auto) 0.3 %; Lymphocytes # (auto) 0.38 K/uL (1.2-3.4); Lymphocytes % (auto) 3.7 %; Mean Corpuscular Hgb Conc 32.5 g/dL (32-36); Mean Platelet Volume 9.9 fL (7.4-10.4); Monocytes # (auto) 0.51 K/uL (0.11-0.59); Neutrophils # (auto) 9.26 K/uL (1.4-6.5); Platelet Count 175 K/uL (130-400); RDW Coefficient of Variation 13.2 % (11.5-14.5); RDW Standard Deviation 39.9 fL (36.4-46.3); White Blood Count 10.18 K/uL (4.8-10.8)
[2021-02-10 03:08] LABS: Blood Urea Nitrogen 7 mg/dl (7-18); Calcium 8.9 mg/dl (8.5-10.1); Carbon Dioxide 30 mmol/L (21-32); Chloride 106 mmol/L (98-107); Creatinine Clr Calc Pharmacy 76.4 ml/min; Est GFR (African American) 111.5 ml/min; Est GFR (Non-African American) 96.2 ml/min; Glucose 111 mg/dl (70-99); Potassium 4.2 mmol/L (3.5-5.1); Sodium 138 mmol/L (136-145)
[2021-02-10 03:12] LABS: Troponin I < 0.015 ng/ml (0-0.045)
[2021-02-10] MEDS: SODIUM CHLORIDE 0.9% 1000ML 1,000 ML IV SCH (06:09)
[2021-02-10] MEDS: POLYETHYLENE (MIRALAX) 17 GM PACK PO SCH ×4 (06:11→21:03)
[2021-02-10] MEDS: LETROZOLE 2.5 MG TAB PO SCH (08:19)
--- NOTE | 2021-02-10 09:21 | Medical Student Progress Note ---
Date of Service February 10, 2021 Assessment & Plan (1) Status post lumbar laminectomy: Plan: -MRI findings:Near-total occluded left lateral recess and foramen at L4-5, probably secondary to disc extrusion. -Procedure by Dr. Pulido on 02/09 & appears to be doing well -Pain well controlled with Ketorolac 15 mg IV q6h; continue monitoring -Spoke about using incentive spirometer to keep her lungs moving -Ambulate with caution if able; if would like to go for a walk, would be accompanied with a nurse -Continue NS 1000 @ 80ml/hr T-Wave Inversion on EKG: -Noticed by PACU nurse yesterday evening -Overnight telemetry: sinus 60s with T-wave inversion -Negative troponins 02/10 -No chest pain, palpitations, chest discomfort -Continue monitoring on telemetry Breast Cancer: -Stage IIb in 2014 -Says she has not been seen since her surgeon and oncologist retired, but says she's doing well; no constitutional symptoms -Currently in letrozole -Need to establish follow-up as an outpatient (2) Acute left-sided low back pain with left-sided sciatica: (3) T wave inversion on electrocardiogram: (4) Breast cancer: Admission and Anticipated Discharge Date Admission Date: February 09, 2021 Subjective Overall, Yessica did well overnight. She is overjoyed that she does not have any back or leg pain. She has been able to ambulate to the bathroom on her own and roll over in bed. Patient is willing to do what she can to expedite her departure from the hospital. Review of Systems Constitutional: no fever and no chills Respiratory: no cough and no dyspnea Cardiovascular: no chest pain Musculoskeletal: no back pain (0/10) and no radicular pain (0/10) Neurologic: no localized weakness and no generalized weakness Physical Exam Constitutional: well developed and well nourished; no acute distress Respiratory: normal respiratory effort, lungs clear to auscultation Cardiovascular: RRR, no murmur, no edema Musculoskeletal: Spine: no pain with thoraco-lumbar ROM and no thoracic spinal tenderness (wound dressing clean, drain in place - 75cc serosaguinous fluid) Results & Data ([facility]) Vital Signs (Past 12 Hours) Vital Signs Temp Pulse Pulse Resp BP BP Pulse Ox 02/10/21 07:31 36.7 C 64 18 122/61 92 02/10/21 07:29 72 02/10/21 02:44 36.5 C 65 18 104/57 L 97 02/09/21 23:24 62 02/09/21 23:00 36.7 C 63 18 124/72 99 02/09/21 22:13 67 Laboratory Results Laboratory Results WBC 10.18 K/uL (4.8-10.8) 02/10/21 02:36 RBC 4.30 M/uL (4.2-5.4) 02/10/21 02:36 Hgb 11.6 g/dL (12.0-16.0) L 02/10/21 02:36 Hct 35.7 % (37-47) L 02/10/21 02:36 MCV 83.0 fL (80-100) 02/10/21 02:36 MCH 27.0 pg (25-34) 02/10/21 02:36 MCHC 32.5 g/dL (32-36) 02/10/21 02:36 RDW Std Deviation 39.9 fL (36.4-46.3) 02/10/21 02:36 RDW Coeff of Karl 13.2 % (11.5-14.5) 02/10/21 02:36 Plt Count 175 K/uL (130-400) 02/10/21 02:36 MPV 9.9 fL (7.4-10.4) 02/10/21 02:36 Immature Gran % (Auto) 0.3 % 02/10/21 02:36 Neut % (Auto) 91.0 % 02/10/21 02:36 Lymph % (Auto) 3.7 % 02/10/21 02:36 Cook % (Auto) 5.0 % 02/10/21 02:36 Eos % (Auto) 0.0 % 02/10/21 02:36 Baso % (Auto) 0.0 % 02/10/21 02:36 Neut # (Auto) 9.26 K/uL (1.4-6.5) H 02/10/21 02:36 Lymph # (Auto) 0.38 K/uL (1.2-3.4) L 02/10/21 02:36 Cook # (Auto) 0.51 K/uL (0.11-0.59) 02/10/21 02:36 Eos # (Auto) 0.00 K/uL (0-0.5) 02/10/21 02:36 Baso # (Auto) 0.00 K/uL (0-0.2) 02/10/21 02:36 Immature Gran # (Auto) 0.03 K/uL (0.00-0.02) H 02/10/21 02:36 PT 10.3 Seconds (9.0-12.0) 02/09/21 11:12 INR 1.0 (0.9-1.1) 02/09/21 11:12 Sodium 138 mmol/L (136-145) 02/10/21 02:36 Potassium 4.2 mmol/L (3.5-5.1) 02/10/21 02:36 Chloride 106 mmol/L (98-107) 02/10/21 02:36 Carbon Dioxide 30 mmol/L (21-32) 02/10/21 02:36 Anion Gap 2.0 (3-11) L 02/10/21 02:36 BUN 7 mg/dl (7-18) 02/10/21 02:36 Creatinine 0.67 mg/dl (0.6-1.2) 02/10/21 02:36 Est Cr Clr Drug Dosing 76.4 ml/min 02/10/21 02:36 Est GFR ( Amer) 111.5 ml/min 02/10/21 02:36 Est GFR (Non-Af Amer) 96.2 ml/min 02/10/21 02:36 BUN/Creatinine Ratio 10.0 (10-20) 02/10/21 02:36 Glucose 111 mg/dl (70-99) H 02/10/21 02:36 POC Glucose 89 mg/dl (70-99) 02/10/21 07:42 Calcium 8.9 mg/dl (8.5-10.1) 02/10/21 02:36 Total Creatine Kinase 91 U/L (26-192) 02/09/21 03:34 Troponin I < 0.015 ng/ml (0-0.045) 02/10/21 08:55 C-Reactive Protein < 0.29 mg/dl (0-0.29) 02/09/21 03:34 COVID-19 Eval Order Covid19 at [facility] 02/09/21 07:59 SARS-CoV-2 (PCR) NEGATIVE (Negative) 02/09/21 07:59 Hepatitis C Ab Screen Neg (Neg) 02/10/21 02:36 Blood Type O Positive 02/09/21 11:12 Antibody Screen NEGATIVE 02/09/21 11:12 Impressions Lumbar Spine X-Ray 02/09/21 00:00 FL lumbar spine 2-3V CLINICAL HISTORY: L4-5 spinal decompression COMPARISON STUDY: MRI dated 02/09/2021 FLUOROSCOPY TIME: 16 seconds. NUMBER OF FLUOROSCOPIC IMAGES: 2 FINDINGS: 2 intraoperative fluoroscopic spot images are provided for interpretation. These reveal postsurgical changes of an L4-5 discectomy and interbody fusion with posterior pedicle screw fixation. There is an overlying sponge. The technologist reports that the surgeon is aware of this finding. IMPRESSION: Intraoperative fluoroscopic spot images revealing postsurgical changes of discectomy and interbody fusion and posterior pedicle screw fixation at the L4-5 level. ACT 112: Negative or not required by law. Electronically signed by: Evan Henriquez M.D. 02/09/2021 5:05 PM Lumbar Spine MRI 02/09/21 03:24 MRI OF THE LUMBAR SPINE WITHOUT IV CONTRAST CLINICAL HISTORY: Low back pain. Left-sided sciatica. COMPARISON STUDY: CT of the lumbar spine dated 12/29/2020. TECHNIQUE: MRI of the lumbar spine is performed utilizing various T1 and T2- weighted sequences in the axial and sagittal planes. IV contrast was not administered for this examination. The examination is severely degraded by motion artifact. FINDINGS: Lumbar spine: Vertebral body height and alignment are maintained throughout the lumbar spine. The transverse and spinous processes appear intact. There is no evidence of spondylolysis. No destructive bony lesion is seen. Small anterior and lateral marginal osteophytes are seen throughout. There is chronic degenerative endplate change at L1-L2 and L2-L3. Endplate edema is noted at T12- L1. Intervertebral discs: Degenerative disc desiccation and mild loss of height is seen throughout the lumbar spine. Loss of height is greatest at L2-L3. Spinal cord: The visualized spinal cord is normal in morphology and signal intensity. The conus medullaris terminates at the level of L1. The nerve roots of the cauda equina are normal in morphology. L1-L2: Unremarkable. L2-L3: There is broad-based posterior disc bulge eccentric to left. There is left-sided subarticular stenosis and this may abut the exiting left L2 nerve root. There is no significant acquired compromise of the central canal. The neural foramina appear patent. L3-L4: Unremarkable. L4-L5: There is broad-based posterior disc bulge eccentric to the left with annular fissure. This impinges on the transiting nerve roots, left greater than right. This causes moderate central canal stenosis at this level with a minimum AP diameter of 7 mm. There is left greater than right-sided subarticular stenosis. This may impinge on the exiting left L4 nerve root. In conjunction with facet arthropathy there is mild right and moderate left-sided neural foraminal stenosis. L5-S1: There is broad-based posterior disc bulge. No significant acquired compromise of the central canal is identified. There is left greater than right- sided subarticular stenosis with possible impingement on the exiting left L5 nerve root. In conjunction with facet arthropathy there is mild left-sided neural foraminal stenosis. Sacrum: The visualized sacrum is normal in morphology and signal intensity. Soft tissues: The paraspinous soft tissues are normal as visualized. The retroperitoneal structures are grossly unremarkable but incompletely assessed. IMPRESSION: 1. Significantly motion compromised examination. 2. Degenerative disc disease as above, greatest at L4-L5 where there is moderate central canal stenosis. See discussion for detailed level by level analysis. 3. Degenerative endplate edema is noted at T12-L1. 4. No destructive bony process is identified. Dictated: 02/09/2021 7:13 AM Transcribed: 02/09/2021 8:39 AM Joselyn [id number] KEVIN_Genaro Electronically signed by: Lei Lyons M.D. 02/09/2021 8:43 AM ECG Rate (beats per minute): 70s Rhythm: sinus rhythm Findings: + T-wave inversion
[2021-02-10] MEDS: CHOLECALCIFEROL 1,000 UNITS 25 MCG TAB PO SCH (11:43)
--- NOTE | 2021-02-10 12:17 | Orthopedic Progress Note ---
Date of Service February 10, 2021 Assessment & Plan (1) Acute left-sided low back pain with left-sided sciatica: Plan: At this time we will initiate physical therapy monitor ASHLEY output anticipate possible discharge home tomorrow. Admission and Anticipated Discharge Date Admission Date: February 09, 2021 Subjective Back pain controlled leg symptoms markedly improved Physical Exam Physical Exam: Patient is comfortable in bed. She is good strength testing. Results & Data ([facility]) Vital Signs (Past 12 Hours) Vital Signs Temp Pulse Pulse Resp BP BP Pulse Ox 02/10/21 11:17 36.7 C 67 20 129/72 94 02/10/21 07:31 36.7 C 64 18 122/61 92 02/10/21 07:29 72 02/10/21 02:44 36.5 C 65 18 104/57 L 97
--- NOTE | 2021-02-10 16:13 | Electrocardiogram Report ---
Test Reason : Blood Pressure : / mmHG Vent. Rate : 056 BPM Atrial Rate : 056 BPM P-R Int : 130 ms QRS Dur : 082 ms QT Int : 460 ms P-R-T Axes : 060 059 -20 degrees QTc Int : 443 ms Sinus bradycardia Nonspecific T wave abnormality Abnormal ECG When compared with ECG of 17-SEP-1999 21:02, T wave inversion now evident in Anterior leads Confirmed by Sanya Phillips ([id number]) on 02/10/2021 4:13:18 PM Referred By: REFERRED SELF Confirmed By:Sanya Phillips
--- NOTE | 2021-02-10 19:05 | Billing Data ---
Date of Service February 10, 2021 Coding Level of Care Code 35904 Subseq Hosp Care Lvl 2
[2021-02-10] MEDS: DOCUSATE SODIUM/SENNA 50/8.6MG TAB PO SCH (21:03)
[2021-02-10] MEDS: CALCIUM CARBONATE 500 MG CHEWABLE TAB PO SCH (21:03)
[2021-02-11] MEDS: POLYETHYLENE (MIRALAX) 17 GM PACK PO SCH (06:37)
[2021-02-11 07:01] LABS: Eosinophils # (auto) 0.07 K/uL (0-0.5); Eosinophils % (auto) 1.3 %; Hemoglobin 9.8 g/dL (12.0-16.0); Immature Granulocytes # (auto) 0.02 K/uL (0.00-0.02); Immature Granulocytes % (auto) 0.4 %; Lymphocytes # (auto) 0.97 K/uL (1.2-3.4); Lymphocytes % (auto) 17.5 %; Mean Corpuscular Hemoglobin 26.6 pg (25-34); Mean Corpuscular Hgb Conc 31.6 g/dL (32-36); Mean Corpuscular Volume 84.2 fL (80-100); Mean Platelet Volume 10.5 fL (7.4-10.4); Monocytes # (auto) 0.66 K/uL (0.11-0.59); Monocytes % (auto) 11.9 %; Neutrophils # (auto) 3.81 K/uL (1.4-6.5); Neutrophils % (auto) 68.9 %; Platelet Count 139 K/uL (130-400); RDW Coefficient of Variation 13.7 % (11.5-14.5); RDW Standard Deviation 42.3 fL (36.4-46.3); Red Blood Count 3.68 M/uL (4.2-5.4); White Blood Count 5.53 K/uL (4.8-10.8)
[2021-02-11 07:35] LABS: BUN Creatinine Ratio 15.3 (10-20); Calcium 7.9 mg/dl (8.5-10.1); Creatinine Clr Calc Pharmacy 77.5 ml/min; Est GFR (African American) 111.5 ml/min; Est GFR (Non-African American) 96.2 ml/min; Potassium 3.6 mmol/L (3.5-5.1)
[2021-02-11] MEDS ORDERED: bisacodyL 10 MG SUPP PR PRN (08:00)
[2021-02-11] MEDS ORDERED: dexAMETHasone 8 MG in SYRINGE 0 ML IV SCH (09:00)
[2021-02-11] MEDS: LETROZOLE 2.5 MG TAB PO SCH (09:11)
[2021-02-11] MEDS: CALCIUM CARBONATE 500 MG CHEWABLE TAB PO SCH (09:12)
[2021-02-11] MEDS: CHOLECALCIFEROL 1,000 UNITS 25 MCG TAB PO SCH (09:12)
--- NOTE | 2021-02-11 09:30 | Med Student Discharge Summary ---
Date of Service February 11, 2021 Admission HPI Per Admitting Provider Yessica is a 60 y/o female presenting to the ED with unbearable left leg pain. She says she began having lower back pain about a month ago, which she thinks may have been exacerbated by an abnormal movement while mowing, which she does every weekend. Since then, the pain has progressively gotten worse and says the pain has been constant for the past couple of days. For the past month, she has been taking 2 Advil 400 mg every four hours. She cannot recall any recent events, falls, or heavy lifting that would have caused her pain to get as bad as it was when she came into the ED. Her pain is described as diffuse, sharp, shooting pain radiating down from her thigh to her left ankle. There is not a position that makes her pain better and upon arrival to the ED, rated her pain a 10/10 since she was tearful. While on the medication in the ED, she says the pain is about a 4-5/10. She does not endorse any weakness, fever, chills, weight loss, chest pain, cough, or shortness of breath. Admission Exam (Per Admitting) Constitutional well developed and well nourished; no acute distress Respiratory normal respiratory effort, lungs clear to auscultation Cardiovascular RRR, no murmur, no edema Musculoskeletal no cyanosis or clubbing, extremities motor strength 5/5 Spine: no pain with thoraco-lumbar ROM and no thoracic spinal tenderness (wound dressing clean, drain in place - 75cc serosaguinous fluid) Extremities: extremities normal to inspection; no cyanosis, no petechiae, full ROM of lower extremities and no lower leg abnormality Discharge Data Consultations 02/09/21 07:25 ED Decision to Admit Stat 02/09/21 07:26 Consult Orthopedic Surgery Routine Procedures Performed Operation Date: 02/09/21 14:25 Actual Procedures p L4-L5 Decompression and Fusion with Insertion of Interbody, Application of Bone Morphogenetic Protein, Spinal Cord Monitoring(Not Applicable) - Ishmael Pulido, Hospital Course (1) Status post lumbar laminectomy: -MRI findings:Near-total occluded left lateral recess and foramen at L4-5, probably secondary to disc extrusion. -Procedure by Dr. Pulido on 02/09 & appears to be doing well -Pain well controlled with Ketorolac & Dexamethasone -Spoke about using incentive spirometer to keep her lungs moving -Ambulate with caution if able; if would like to go for a walk, would be accompanied with a nurse T-Wave Inversion on EKG: -Noticed by PACU nurse yesterday evening -Overnight telemetry: sinus 60s with T-wave inversion -Negative troponins 02/10 -No chest pain, palpitations, chest discomfort -Continue monitoring on telemetry Breast Cancer: -Stage IIb in 2015 -Says she has not been seen since her surgeon and oncologist retired, but says she's doing well; no constitutional symptoms -Currently in letrozole -Need to establish follow-up as an outpatient (2) Acute left-sided low back pain with left-sided sciatica: (3) T wave inversion on electrocardiogram: (4) Breast cancer: Discharge Plan Discharge Items Patient Disposition: Home - Self-Care Reason For Visit: LEFT LEG PAIN Discharge Diagnosis: Lumbar disc condition with radiculopathy Activity: As commented below Non-emergency contact: Primary Care Provider Call non-emergency contact if: you have any medication questions, your symptoms worsen and your pain is not controlled Follow-up/Referrals: Yessica Toth CRNP [Primary Care Provider] - 02/25/21 2:00 pm Diet: Regular Addtl Attending Provider Instructions: ACTIVITY RECOMMENDATIONS: SELF CARE INSTRUCTIONS AFTER THORACIC/LUMBAR FUSIONS 1. You may walk to your tolerance. It is good exercise for your legs and back. Expect some back and intermittent leg aches and pains. 2. You may perform "counter-top" level activities (make a sandwich, ildefonso with a project, etc.). 3. No bending or lifting of more than 10 pounds or back twisting of any nature (roll like a log when turning in bed). 4. You may ride in a car for 20-30 minutes at a time. No driving until after your first visit with your doctor. 5. Frequent changes of position and restricting sitting to 30 minutes at a time will help limit the amount of back spasms and stiffness you may experience. 6. You may discontinue the use of ambulatory aids (cane, crutches, etc.) once your strength and confidence allow. 7. You may continuity reader the shower and let water strike your incision when you arrive home at least once daily. Do not take a tub bath, sit in a hot tub or go into a swimming pool until after your first recheck in the office. SPECIAL CARE INSTRUCTIONS: VERY IMPORTANT TO READ AND REVIEW A. Your surgical incision has been closed with a cosmetic suture under the skin that will dissolve in about 6 weeks. In 14 days, you can use a pair of clean scissors and cut the suture that is left outside of the skin at the ends of your incision. 1. The small skin tapes can be removed 7 days after surgery if they have not fallen off by that point. 2. You may keep the wound open to air as much as possible to promote healing after post-op day number 5 unless told otherwise by your doctor. 3. If you think the wound looks like it is becoming infected (redness or worsening drainage) and/or you are experiencing fever, chill or worsening back pain and muscle spasms, contact the office so that we may evaluate you as soon as possible. B. Complications are uncommon, but please contact us if you have any signs or symptoms of: 1. wound infection (fever higher than 102.5 degrees F, redness, separation of wound, drainage, or increasing pain from the incision) 2. blood clots in legs (pain, swelling, redness and warmth in legs) 3. urinary tract infection (fever higher than 102.5 degrees F, burning upon urination or increased frequency of urination) 4. nerve problems (inability to walk on your toes or heels, numbness, loss of bowel or bladder control) 5. any other symptoms that concern you C. Please call the office at if you have any concerns or questions about your operation or recovery. D. No smoking! Smoking drastically decreases the chance of a solid fusion. E. Do not take any anti-inflammatory medications (Indocin, Advil, Motrin, Aspirin, Naprosyn, etc.) as these may inhibit the chance of a solid fusion. Tylenol is okay to take for pain. MANAGING PAIN AFTER SPINAL SURGERY 1. Narcotic medication is intended for short-term use and will be provided for surgical pain. Surgical pain usually lasts for a period of 4-6 weeks. Narcotic medication includes Percocet, Vicodin, Darvocet, Tylenol #3 or Lortab. 2. Longer-term pain is more appropriately treated with non-narcotic medication such as Tylenol ES. 3. Muscle spasm is not appropriately treated with narcotics. Muscle relaxers such as Soma, Flexeril or Skelaxin can be used along with Tylenol ES. 4. Remember that we all live with some "aches and pains". This is not unusual or uncommon after an injury or as we get older. a. Back pain is expected and may include muscle spasms for 4 to 6 weeks after surgery. The pain should gradually improve. If the pain worsens for no apparent reason, please contact the office. b. Intermittent leg pain may also be experienced and should not be concerned about unless it worsens for no apparent reason. If so, please contact the office. 5. We will provide appropriate medication within the normal guidelines of their prescribed use. We will also be very cautious and aware of potential abuse and extended duration of patients' medication needs. a. Pain medications are for your comfort and to assist with sleep and rest so that the tissue can heal. They are not provided in order to return to normal activity and should not be used through the day. To do so or worsening pain at night can result from ongoing tissue damage and development of tolerance to the prescribed medicine. 6. Please allow 2-3 days to process refills. Prescriptions will not be mailed but must be picked up at the office. FOLLOW UP VISIT: Keep your scheduled follow-up appointment. Any questions, please call the office at . Pending Studies at Discharge: No Stand-Alone Forms: My [facility] [employer], Smoking Cessation Medications and DC Order Prescriptions: New tramadol 50 mg tablet 50 mg PO Q6H PRN (Reason: pain, moderate) Qty: 30 RF: 0 oxycodone 5 mg tablet 5 mg PO Q6H PRN (Reason: pain, severe) Qty: 30 RF: 0 Continued calcium carbonate [Calcium 500] 500 mg calcium (1,250 mg) tablet 500 mg PO BID RF: 0 letrozole 2.5 mg Tablet 2.5 mg PO QAM RF: 0 cholecalciferol (vitamin D3) [Vitamin D3] 5,000 unit Tablet 5,000 unit PO QAM RF: 0 Discharge Orders: Discharge Order (Routine); Ordered 02/11/21 Ordered By: Michael Andrews/Other Patient Handouts: Back Safety: Bending, Back Safety: Lifting, Back Safety: Pushing and Pulling, Back Safety: Sleeping Positions, Back Safety: Sitting, Back Safety: Standing, Back Safety: Turning, Laminectomy, Microdiscectomy, Back Safety: Basics of Good Posture, Back Safety: Poor Posture Hurts, Self Care Back Day Admission Data Admit Date/Time: 02/09/21 16:54 Attending Provider: Henri Rollins Admit Provider: Ishmael Pulido Primary Care Provider: Yessica Toth Other Providers: eSlwyn Roa ; Ishmael Pulido Other Interventions: Discharge Summary Assessment (RN) Last Done: 02/11/21 10:50 Supervising Attestation I personally examined the patient and verified all swanson points of history and exam, discussed case, and agree with decision making with Veronica aMthis MS4 Feeling really good. No significant pain. Really wants to go home Vitals noted, in general she is awake and alert pleasant and in no distress. HEENT normocephalic atraumatic mucous membranes moist. Breathing unlabored no accessory muscle use good effort. Lumbar radiculopathy with severe disc herniationnow postop and doing very well. Stable for home. Appreciate orthopedics input. Outpatient follow-up. Asymmetric blood pressuresbrought to my attention after patient was discharged. She is asymptomatic, it seems to have been 1 readingI question whether or not it might have even been an error. Certainly with no symptoms it is safe for her to have this followed up as an outpatient. Otherwise as above/below
--- NOTE | 2021-02-11 11:47 | Orthopedic Progress Note ---
Date of Service February 11, 2021 Assessment & Plan (1) Status post lumbar laminectomy: Plan: This time she is progressed appropriately. Marked improvement of her radiculopathy. She is reasonable to go home today. Did have a discussion with her today regarding postop instructions and I would like her not to work for at least a week. Admission and Anticipated Discharge Date Admission Date: February 09, 2021 Subjective Patient's back pain is controlled leg symptoms markedly improved Physical Exam Physical Exam: Patient has good strength testing appears comfortable. Results & Data ([facility]) Vital Signs (Past 12 Hours) Vital Signs Temp Pulse Pulse Pulse Resp BP BP 02/11/21 10:50 36.5 C 65 82 16 99/59 L 153/115 H 02/11/21 08:00 36.5 C 82 16 153/115 H 02/11/21 07:17 69 02/11/21 03:35 36.6 C 59 L 16 99/59 L 02/11/21 00:00 68 Pulse Ox 02/11/21 10:50 96 02/11/21 08:00 96 02/11/21 07:17 02/11/21 03:35 97 02/11/21 00:00
--- NOTE | 2021-02-11 18:21 | Billing Data ---
Date of Service February 11, 2021 Coding Level of Care Code D/C DAY MANAGEMENT <30 MINS
== END 2021-02-11 13:02 | disposition home or self-care (01) | DRG 455 ==
LOC: ED 02:56 → 3N 02:56 → 2N 20:05